=== PATIENT | male | born 1935 | race Hispanic/Latino ===

== ENCOUNTER 2017-06-12 10:14 | Emergency (ER) | payer MEDICARE, OTHER ==
[2017-06-12 10:52] LABS: #Lymphocytes 1.7 thou/uL (1.20-3.40); #Monocytes 0.5 thou/uL (0.11-0.59); #Neutrophils 7.2 thou/uL (1.40-6.50); %Basophils 0.4 % (0.0-1.0); %Eosinophils 0.1 % (0.0-10.0); %Lymphocytes 18.3 % (21.0-51.0); %Monocytes 5.4 % (0.0-10.0); Hematocrit 41.9 % (42.0-52.0); Red Blood Cell (RBC) Count 4.25 mill/uL (4.70-6.10); White Blood Cell (WBC) Count 9.4 thou/uL (4.8-10.8)
[2017-06-12 11:17] LABS: ALT (SGPT) 21 U/L (8-55); AST (SGOT) 23 U/L (5-34); Alkaline Phosphatase 43 U/L (40-150); Anion Gap 13 mmol/L (10-20); BUN (Urea Nitrogen) 13 mg/dL (8.4-25.7); Bilirubin, Total 0.5 mg/dL (0.2-1.2); Calc. Creatinine Clearance 0 mL/min (70-130); Calcium 9.4 mg/dL (7.8-10.44); Carbon Dioxide 20 mmol/L (23-31); Chloride 103 mmol/L (98-107); Estimated GFR-MDRD 58; Protein, Total 6.8 g/dL (5.8-8.1)
[2017-06-12 12:15] LABS: Bilirubin Negative (Negative); Blood, Urine Negative (Negative); Glucose, Urine (Dipstick) >=1000 mg/dL (Negative); Ketone, Urine Trace mg/dL (Negative); Nitrite Negative (Negative); Protein, Urine (Dipstick) 30 mg/dL (Neg-Trace)
[2017-06-12 12:24] LABS: Bacteria/HPF None Seen HPF (None Seen); Hyaline Casts/LPF 0-3 HYALINE CAST LPF (0-3 Hyaline); Squamous Epithelial None Seen HPF (0-3); WBC/HPF 0-3 HPF (0-3)
--- NOTE | 2017-06-12 13:16 | RAD ---
ABDOMINAL SURVEY WITH UPRIGHT CHEST AND TWO VIEW ABDOMEN: History: Chest pain. FINDINGS: Lungs are clear. No infiltrate or vascular congestion. Post op sternotomy change. Heart size within n ormal range. Two view abdomen shows scattered stool and gas throughout the colon. There is scattered small bowel g as which appears nonspecific. No evidence of small bowel dilatation or obstruction. No free intraperi toneal air identified. IMPRESSION: Unremarkable bowel gas pattern. Nonspecific small bowel gas is noted. POS: [facility]
== END 2017-06-12 15:14 | disposition home or self-care (01) ==
LOC: ERS 10:14
DX: R10.9 Unspecified abdominal pain (principal); Z87.442 Personal history of urinary calculi; I25.10 Atherosclerotic heart disease of native coronary artery without angina pectoris; E11.9 Type 2 diabetes mellitus without complications; E78.5 Hyperlipidemia, unspecified; I10 Essential (primary) hypertension; Z79.82 Long term (current) use of aspirin; Z79.84 Long term (current) use of oral hypoglycemic drugs; Z79.899 Other long term (current) drug therapy
CPT/HCPCS: 36415; 74022; 80053; 81003; 81015; 82553; 84484; 85025

== ENCOUNTER 2019-02-25 13:01 | Emergency (ER) | payer MEDICARE, OTHER ==
[2019-02-25] MEDS ORDERED: Ondansetron PF 4 MG/2 ML Vial ONE (13:42)
[2019-02-25 13:55] LABS: #Eosinphils 0.2 thou/uL (0.0-0.7); #Lymphocytes 2.6 thou/uL (1.20-3.40); #Monocytes 0.4 thou/uL (0.11-0.59); #Neutrophils 4.4 thou/uL (1.40-6.50); %Basophils 0.5 % (0.0-1.0); %Eosinophils 2.7 % (0.0-10.0); %Lymphocytes 33.4 % (21.0-51.0); %Monocytes 5.7 % (0.0-10.0); %Neutrophils 57.7 % (42.0-75.0); Hemoglobin 12.6 g/dL (14.0-18.0); Mean Corpuscular HGB CONC 33.2 g/dL (32.0-36.0); Mean Corpuscular Volume 96.3 fL (78.0-98.0); Mean Platelet Volume 8.6 fL (7.4-10.4); Platelet Count 174 thou/uL (130-400); RBC Distribution Width 13.6 % (11.5-14.5); Red Blood Cell (RBC) Count 3.93 mill/uL (4.70-6.10); White Blood Cell (WBC) Count 7.7 thou/uL (4.8-10.8)
--- NOTE | 2019-02-25 14:05 | CT ---
CT BRAIN WITHOUT CONTRAST: Date: 02/25/19 INDICATION: History of dizziness. COMPARISON: None. FINDINGS: There is an air fluid level within the left maxillary sinus. There is an air fluid level within the r ight sphenoid sinus. There is mild mucosal thickening of the ethmoid air cells. Mastoid air cells are clear. No acute infarct, hemorrhage, or hydrocephalus is evident. No midline shift is noted. IMPRESSION: 1. Left maxillary and right sphenoid sinusitis. 2. No acute intracranial abnormality. POS: [facility]
[2019-02-25 14:17] LABS: ALT (SGPT) 13 U/L (8-55); AST (SGOT) 13 U/L (5-34); Albumin 4.1 g/dL (3.4-4.8); Alkaline Phosphatase 49 U/L (40-150); Anion Gap 13 mmol/L (10-20); BUN (Urea Nitrogen) 22 mg/dL (8.4-25.7); Bilirubin, Total 0.4 mg/dL (0.2-1.2); CK (CPK) 69 U/L (30-200); Calc. Creatinine Clearance 0 mL/min (70-130); Calcium 9.4 mg/dL (7.8-10.44); Carbon Dioxide 22 mmol/L (23-31); Chloride 106 mmol/L (98-107); Estimated GFR-MDRD 52; Globulin 2.5 g/dL (2.4-3.5); Glucose 155 mg/dL (83-110); Potassium 5.2 mmol/L (3.5-5.1); Protein, Total 6.6 g/dL (5.8-8.1); Sodium 136 mmol/L (136-145)
[2019-02-25 17:28] LABS: Anion Gap 14 mmol/L (10-20); BUN (Urea Nitrogen) 20 mg/dL (8.4-25.7); Calc. Creatinine Clearance 0 mL/min (70-130); Calcium 9.4 mg/dL (7.8-10.44); Carbon Dioxide 18 mmol/L (23-31); Chloride 108 mmol/L (98-107); Estimated GFR-MDRD 61; Glucose 118 mg/dL (83-110); Potassium 4.8 mmol/L (3.5-5.1); Sodium 135 mmol/L (136-145)
[2019-02-25 17:56] LABS: Bilirubin Negative (Negative); Blood, Urine Negative (Negative); Clarity Clear (Clear); Glucose, Urine (Dipstick) 200 mg/dL (Negative); Leukocyte Negative Leu/uL (Negative); Nitrite Negative (Negative); Protein, Urine (Dipstick) Negative (Neg-Trace); Urobilinogen Normal mg/dL (Less than 2)
--- NOTE | 2019-02-28 22:33 | EKG ---
Test Reason : SYNCOPE Blood Pressure : / mmHG Vent. Rate : 064 BPM Atrial Rate : 064 BPM P-R Int : 170 ms QRS Dur : 126 ms QT Int : 444 ms P-R-T Axes : 006 -52 000 degrees QTc Int : 458 ms Normal sinus rhythm Right bundle branch block Left anterior fascicular block Bifascicular block Abnormal ECG Confirmed by SHAHEEN EDWARDS, MARTA Garcia ([id number]), dictionary editor MERCEDES LONGO ([id number]) on 02/28/2019 10:32:40 PM Referred By: MD JAMISON Confirmed By:MARTA JAMISON MD
== END 2019-02-25 19:14 | disposition home or self-care (01) ==
LOC: ERS 13:01
DX: T67.5XXA Heat exhaustion, unspecified, initial encounter (principal); E86.0 Dehydration; I25.10 Atherosclerotic heart disease of native coronary artery without angina pectoris; E11.9 Type 2 diabetes mellitus without complications; I10 Essential (primary) hypertension; K21.9 Gastro-esophageal reflux disease without esophagitis; E78.5 Hyperlipidemia, unspecified; E78.00 Pure hypercholesterolemia, unspecified; F32.9 Major depressive disorder, single episode, unspecified; Z79.899 Other long term (current) drug therapy; Z79.84 Long term (current) use of oral hypoglycemic drugs; Z79.82 Long term (current) use of aspirin; X30.XXXA Exposure to excessive natural heat, initial encounter
CPT/HCPCS: 36415; 70450; 80053; 81003; 82550; 84484; 85025; 93005; 96361; 96374; J2405

== ENCOUNTER 2019-04-18 16:55 | Emergency (ER) | payer MEDICARE, OTHER ==
[2019-04-18 18:01] LABS: Bilirubin Negative (Negative); Blood, Urine 2+ (Negative); Clarity Turbid (Clear); Glucose, Urine (Dipstick) Normal (Negative); Leukocyte 500 Leu/uL (Negative); Nitrite Negative (Negative); Protein, Urine (Dipstick) 100 mg/dL (Neg-Trace); RBC/HPF Greater than 50 HPF (0-3); Squamous Epithelial None Seen HPF (0-3); Urobilinogen Normal mg/dL (Less than 2)
[2019-04-18 18:07] LABS: Bacteria/HPF 1+ HPF (None Seen)
--- NOTE | 2019-04-18 18:57 | CT ---
Exam: Abdomen CT without contrast Pelvic CT without contrast HISTORY: Dysuria. Hematuria. COMPARISON: None FINDINGS: Abdomen CT: Lung bases:Dependent atelectatic changes. 2 separate 4 mm nodules in the right lower lobe. Heart size: Normal heart size. No significant pericardial effusion. Aorta: Atherosclerosis. No aneurysmal dilatation. Solid organs: Limited evaluation due to the lack of IV contrast. Grossly no solid organ abnormality. Lymph nodes: No gastrohepatic, retrocrural or periportal lymphadenopathy Gallbladder: Surgically absent Mesentery: No mass, lymphadenopathy, free air or free fluid Kidneys: Bilaterally, no hydronephrosis, nephrolithiasis or perinephric fat stranding. Bilateral uret ers have a normal caliber. No hydroureter, periureteral fat stranding or ureterolithiasis. Alimentary canal: Limited evaluation due to lack of oral contrast. No evidence of small bowel obstruc tion. Unremarkable ileocecal junction. Normal caliber appendix. Scattered fecal material in a nondistended, nondilated colon. Diverticulosis, without evidence of diverticulitis. Stable calcificat ion along the distal descending colon likely representing a calcified diverticulum or change from remote epiploic appendicitis. Retroperitoneum: There are enlarged periaortic and aortocaval lymph nodes. [place] enlarged ly mph node measures 1.[address] PELVIS: No mass, adenopathy, free air or free fluid. Urinary bladder: Urinary bladder mucosal thickening. Osseous structures: No lytic or blastic lesions IMPRESSION: 1. No evidence of obstructive uropathy. 2. Urinary bladder mucosal prominence. Findings may be due to prostatic hypertrophy. Cystitis cannot be excluded. Correlate clinically. Cystoscopy if clinically warranted. 3. Enlarged retroperitoneal lymph nodes. Clinical correlation for infectious, inflammatory or neoplas tic process is recommended. 4. Right lower lobe nodules. Code lung nodule Transcribed Date/Time: 04/18/2019 7:31 PM
[2019-04-18] MEDS ORDERED: Ciprofloxacin 500 MG TAB ONE (19:12)
== END 2019-04-18 19:30 | disposition home or self-care (01) ==
LOC: ERS 16:55
DX: N30.91 Cystitis, unspecified with hematuria (principal); I25.10 Atherosclerotic heart disease of native coronary artery without angina pectoris; E11.9 Type 2 diabetes mellitus without complications; I10 Essential (primary) hypertension; K21.9 Gastro-esophageal reflux disease without esophagitis; E78.00 Pure hypercholesterolemia, unspecified; F32.9 Major depressive disorder, single episode, unspecified; Z79.899 Other long term (current) drug therapy; Z79.82 Long term (current) use of aspirin; Z79.84 Long term (current) use of oral hypoglycemic drugs
CPT/HCPCS: 51798; 74176; 81003; 81015

== ENCOUNTER 2019-06-15 10:45 | Observation (INO) | payer MEDICARE, MEDICAID ==
[2019-06-15] MEDS ORDERED: Aspirin Chewable 81 MG TAB ONE (10:56)
[2019-06-15 11:22] LABS: #Basophils 0.1 thou/uL (0.0-0.2); #Eosinphils 0.2 thou/uL (0.0-0.7); #Monocytes 0.3 thou/uL (0.11-0.59); #Neutrophils 2.5 thou/uL (1.40-6.50); %Eosinophils 3.4 % (0.0-10.0); %Lymphocytes 49.5 % (21.0-51.0); %Monocytes 5.1 % (0.0-10.0); %Neutrophils 40.9 % (42.0-75.0); Hemoglobin 13.3 g/dL (14.0-18.0); Mean Corpuscular HGB CONC 33.7 g/dL (32.0-36.0); Mean Corpuscular Hemoglobin 31.6 pg (27.0-31.0); Mean Corpuscular Volume 93.8 fL (78.0-98.0); Mean Platelet Volume 8.9 fL (7.4-10.4); Platelet Count 191 thou/uL (130-400); White Blood Cell (WBC) Count 6.1 thou/uL (4.8-10.8)
[2019-06-15 11:29] LABS: PTT 30.4 SEC (22.9-36.1); Prothrombin Time 12.8 SEC (12.0-14.7)
--- NOTE | 2019-06-15 11:36 | RAD ---
Exam: Chest one view HISTORY:Chest pain Comparison: 5-70 FINDINGS: Cardiac silhouette: Normal Aorta: Atherosclerosis of the aortic knob Stable sternotomy wires Pulmonary vessels: Normal Costophrenic angles: Clear LUNGS: No masses or consolidation. Pneumothorax: None Osseous abnormalities: None IMPRESSION: 1. No acute cardiopulmonary process. 2. Atherosclerosis.
[2019-06-15 11:37] LABS: ALT (SGPT) 9 U/L (8-55); AST (SGOT) 14 U/L (5-34); Albumin 4.2 g/dL (3.4-4.8); Alkaline Phosphatase 61 U/L (40-110); Anion Gap 14 mmol/L (10-20); BUN (Urea Nitrogen) 14 mg/dL (8.4-25.7); Bilirubin, Total 0.3 mg/dL (0.2-1.2); Calc. Creatinine Clearance 0 mL/min (70-130); Calcium 9.5 mg/dL (7.8-10.44); Carbon Dioxide 23 mmol/L (23-31); Chloride 105 mmol/L (98-107); Estimated GFR-MDRD 62; Glucose 204 mg/dL (83-110); Potassium 4.6 mmol/L (3.5-5.1); Protein, Total 7.2 g/dL (5.8-8.1); Sodium 137 mmol/L (136-145)
--- NOTE | 2019-06-15 12:24 | PDOC.FPRHP ---
- History of Present Illness Chief Complaint: Chest Pain History of Present Illness: Pt is an 84 yo M with history of UTI being treated, OA, CHF, DMII, BPH, GERD, CAD, HLD, Hypothyroid, and HTN who comes in due to R. arm tingling that occurred 3 days ago and chest pain that started this morning. Pt reports having small amount of chest pain overnight around 1:00 am. Reports pain as substernal and more on the left side of the chest. Reports as mild burn. Pt reports having acid reflux. Was recently given medicine by PCP for this. Pt reports medication have not helped. Deneis any n/v/d/c. Pt reports pain lasted about 1 hour. Pt reports taking two tylenol then because he had headache as well and pain went away. Denies any SOB. The pain in the right arm and tingling has been going on 3 days prior to the chest pain. ED Course: In the ED, he was given ASA 324. Troponin was < 0.010, EKG was unchanged from previous admission. His coag panel was normal. CBC showe slightly decreased Hgb of 13.3 and CMP showed only glucose elevation. - Allergies/Adverse Reactions Allergies Allergy/AdvReac Type Severity Reaction Status Date / Time No Known Allergies Allergy Verified 02/19/16 06:40 - Home Medications Medication Instructions Recorded Confirmed Type Aspirin [Ecotrin Low Strength] 81 mg PO DAILY 02/19/16 06/15/19 History Carvedilol [Coreg] 12.5 mg PO BID 02/19/16 06/15/19 History Levothyroxine Sodium 50 mcg PO DAILY 02/19/16 06/15/19 History Lisinopril 10 mg PO DAILY 02/19/16 06/15/19 History Simvastatin 40 mg PO HS 02/19/16 06/15/19 History Tamsulosin HCl [Flomax] 0.4 mg PO DAILY 02/19/16 06/15/19 History metFORMIN HCl 1,000 mg PO BID 02/19/16 06/15/19 History glipiZIDE 5 mg PO BID 06/15/19 06/15/19 History Comments: The Medications above are not his updated list. His updated medications are listed below. Glipizide 5 mg q12 hrs Ranitidine 150mg daily ASA 81 mg daily Tamsulosin .4 mg daily Lisinopril 10 mg Carvedilol 12.5 mg 1 tab am, 2 tabs pm Levothyroxine 50 mcg Metformin 1000mg BID Simvastatin 40 mg - History PMHx: DMII, Neuropathy, HTN, Cataract, Osteoarthritis, GERD, BPH, HLD, Hypothyroidism. PSHx: CABG, Cholecystectomy FHx: Has some positive fam history of heart issues. Social: Denies any smoking, alcohol use or illicit drug use Code: Full 2018 echo reviewed from clinic records shows EF 50-55%. Moderate LVH. Grade 1 diastolic dysfunction. - Review of Systems General: denies: fever/chills, weight/appetite/sleep changes, night sweats, fatigue Eyes: denies: eye pain, vision changes ENT: denies: nasal congestion, rhinorrhea Respiratory: denies: cough, congestion, shortness of breath, exercise intolerance Cardiovascular: reports: chest pain. denies: palpitation, edema, paroxysmal nocturnal dyspnea, orthopnea Gastrointestinal: denies: nausea, vomiting, diarrhea, constipation, abdominal pain, GI bleeding Genitourinary: reports: dysuria (reports burning with urination.), polyuria. denies: incontinence, discharge Skin: denies: rashes, lesions Musculoskeletal: denies: pain, tenderness, stiffness, swelling, arthritis/ arthralgias Neurological: denies: numbness, seizure, weakness Psychological: denies: anxiety, depression - Vital signs BP: [140/68] HR: [68] RR: [18] Tmax: [] Pox: [97]% on [RA] Wt: [] - Physical Exam Constitutional: NAD, awake, alert and oriented HEENT: normocephalic and atraumatic, PERRLA, EOMI, normal nasal mucosa, MMM, oropharynx clear -HEENT: poor dentition Neck: supple, FROM, trachea midline Chest: no-tender to palpation -Chest: Scar from CABG Heart: RRR, normal S1/S2 Lungs: CTAB, no respiratory distress, good air movement, no rales/rhonchi, no wheezing, no retractions Abdomen: soft, non-tender, bowel sounds present Musculoskeletal: normal structure, normal tone Neurological: no focal deficit, normal sensation Skin: no rash/lesions Heme/Lymphatic: no unusual bruising or bleeding Psychiatric: normal mood and affect FMR H&P: Results - Labs Result Diagrams: 06/15/19 11:05 06/15/19 11:05 Lab results: WBC 6.1 thou/uL (4.8-10.8) 06/15/19 11:05 Hgb 13.3 g/dL (14.0-18.0) L 06/15/19 11:05 Hct 39.4 % (42.0-52.0) L 06/15/19 11:05 MCV 93.8 fL (78.0-98.0) 06/15/19 11:05 Plt Count 191 thou/uL (130-400) 06/15/19 11:05 Neutrophils % 40.9 % (42.0-75.0) L 06/15/19 11:05 Sodium 137 mmol/L (136-145) 06/15/19 11:05 Potassium 4.6 mmol/L (3.5-5.1) 06/15/19 11:05 Chloride 105 mmol/L (98-107) 06/15/19 11:05 Carbon Dioxide 23 mmol/L (23-31) 06/15/19 11:05 BUN 14 mg/dL (8.4-25.7) 06/15/19 11:05 Creatinine 1.13 mg/dL (0.7-1.3) 06/15/19 11:05 Glucose 204 mg/dL (83-110) H 06/15/19 11:05 Calcium 9.5 mg/dL (7.8-10.44) 06/15/19 11:05 Total Bilirubin 0.3 mg/dL (0.2-1.2) 06/15/19 11:05 AST 14 U/L (5-34) 06/15/19 11:05 ALT 9 U/L (8-55) 06/15/19 11:05 Alkaline Phosphatase 61 U/L (40-110) 06/15/19 11:05 Serum Total Protein 7.2 g/dL (5.8-8.1) 06/15/19 11:05 Albumin 4.2 g/dL (3.4-4.8) 06/15/19 11:05 - EKG Interpretation EKG: Unchanged from previous admission. - Radiology Interpretation Chest x-ray Status: report reviewed by nd FMR H&P: A/P - Problem List (1) Chest pain Current Visit: Yes Status: Acute Code(s): R07.9 - CHEST PAIN, UNSPECIFIED (2) CAD (coronary artery disease) Current Visit: No Status: Chronic Code(s): I25.10 - ATHSCL HEART DISEASE OF [place] CORONARY ARTERY W/O ANG PCTRS (3) Diabetes type 2, controlled Current Visit: No Status: Chronic Code(s): E11.9 - TYPE 2 DIABETES MELLITUS WITHOUT COMPLICATIONS (4) GERD (gastroesophageal reflux disease) Current Visit: No Status: Chronic Code(s): K21.9 - GASTRO-ESOPHAGEAL REFLUX DISEASE WITHOUT ESOPHAGITIS (5) HTN (hypertension) Current Visit: No Status: Chronic Code(s): I10 - ESSENTIAL (PRIMARY) HYPERTENSION (6) Hypothyroidism Current Visit: No Status: Chronic Code(s): E03.9 - HYPOTHYROIDISM, UNSPECIFIED (7) Normocytic anemia Current Visit: No Status: Chronic Code(s): D64.9 - ANEMIA, UNSPECIFIED - Plan Pt is an 84 yo M with history of OA, CHF, DMII, BPH, GERD, CAD, HLD, Hypothyroid , and HTN who comes in due to R. arm tingling that occurred 3 days ago and chest pain that started this morning. 1. Chest Pain, Atypical Chest Pain that was burning on L side of chest at rest and resolved and relieved with Tylenol * Trop: < 0.01 * Will Trend * EKG Unchanged since previous admission * CXR: Atherosclerosis with NAF * Heart Score: 6 * Hx of CABG 7 years ago, 3 vessel * ASA & Atorvastatin started * Mag, Phos,TSH, Lipid panel ordered * ECHO: (2018) EF 50-55%. Moderate LVH. Grade 1 diastolic dysfunction. * Ordered ECHO & Stress 2. CHF No edema on exam or SOB * ECHO: (2018) EF 50-55%. Moderate LVH. Grade 1 diastolic dysfunction. * Will repeat ECHO * Will Lisinopril & Carvedilol 3. DMII BG slightly elevated * 08/19/28 A1c: 7.8% * Will restart Metformin & Glipizide 4. HTN BP: 178/92 * Will Lisinopril & Carvedilol * Will monitor & adjust as needed 5. HLD * Atorvastatin 20 mg qHS * Ordered Lipid panel 6. BPH * Restart Tamsulosin 7. GERD * Will restart Ranitidine 8. Hypothyroid * Will restart Levo 9. Normocytic Anemia Hgb: 13.3 * Up from clinic Hgb of 12. Code Status: Full Diet: CC Lines: Peripheral GI PPx: Ranitidine DVT PPx: Lovenox Dispo: Tele Obs, LOS < 48H. Likely d/c tomorrow after testing. FMR H&P: Upper Level - Pertinent history I was present with Dr. Mandy Quinn during the HPI. I scribed the above document. I made edits as needed. See above for details. - Pertinent findings Pt does not appear fluid overloaded at this time. Cardio: RRR, no murmurs or gallops. Neuro: No numbness noted in LE and UE. Good ROm. - Plan Date/Time: 06/15/19 1223 I, Juni Gallo, PGY-3 have evaluated this patient and agree with findings/ plan as outlined by dietetic intern resident. Pertinent changes/additions are listed here. See above for detailed plan. I have made edits above. At this time we will admit patient for Atypical chest pain. Will trend trops. Will repeat ECHO as last ECHO performed in [facility] charts was 2018. Will plan on stress test in the AM. Will consult cardiology pending any changes. Pt also recently started on GERD medication. Will titrate ranitidine to 2x daily and see if helps. Addendum - Attending - Attending Attestation Date/Time: 06/15/19 5735 I personally evaluated the patient and discussed the management with Dr. Mandy Quinn I agree with the History, Examination, Assessment and Plan documented above with any addition or exceptions noted below - 84 yo M with history of UTI being treated, OA, CHF, DMII, BPH, GERD, CAD, HLD, Hypothyroid, and HTN who comes in due to R. arm tingling that occurred 3 days ago and chest pain that started this morning. Denies any SOB, N/V or diaphoresis. Exam repeated by me and agree with resident's findings. EKG unchanged from prior EKG, Trop<0.010. A/P: 1) Atypical chest pain- place in obs. Check serial cardiac enzymes. Plan for stress in AM 2) HTN- continue home meds, 3) Hyopothyroidism- will check TSH; continue home meds and adjust as needed
[2019-06-15] MEDS ORDERED: HumaLOG 300 UNITS/3 ML VIAL SC PRN ×2 (13:13)
[2019-06-15] MEDS ORDERED: Dextrose 50% Abboject 50 ML SYRINGE SLOW IVP PRN (13:13)
[2019-06-15] MEDS ORDERED: Dextrose 5% in Water 1,000 ML IV PRN (13:13)
[2019-06-15] MEDS ORDERED: Ondansetron PF 4 MG/2 ML Vial IVP PRN (14:40)
[2019-06-15] MEDS ORDERED: hydrALAZINE 20 MG/ML VIAL SLOW IVP PRN (14:40)
[2019-06-15] MEDS ORDERED: Acetaminophen 650 MG Suppository PR PRN (14:40)
[2019-06-15] MEDS ORDERED: Calcium Carbonate 500 MG ChewTAB PO PRN (14:40)
[2019-06-15] MEDS ORDERED: Acetaminophen 325 MG TAB PO PRN (14:40)
[2019-06-15] MEDS ORDERED: Nitroglycerin 0.4 MG TAB (25 Tab Bottle) PO PRN (14:40)
[2019-06-15] MEDS ORDERED: Ondansetron ODT 4 MG TAB PO PRN (14:40)
[2019-06-15 14:57] VITALS: BMI 26.2
[2019-06-15 15:15] LABS: Magnesium 1.5 mg/dL (1.6-2.6)
[2019-06-15] MEDS ORDERED: Enoxaparin Sodium 40 MG/0.4 ML SYRINGE SC SCH (18:15)
[2019-06-15] MEDS ORDERED: Atorvastatin Calcium 20 MG TAB PO SCH (21:00)
[2019-06-16 05:16] LABS: Cardiac Risk 3.2 (Less than 4.5)
[2019-06-16] MEDS ORDERED: Levothyroxine Sodium 50 MCG TAB PO SCH (06:00)
--- NOTE | 2019-06-16 06:22 | PDOC.FM ---
- Subjective Subjective: He says he is not in any pain. The bed he says is very uncomfortable and he was only able to get a little sleep. He says he is eating well. - Objective MAR Reviewed: Yes Vital Signs & Weight: Vital Signs (12 hours) Temp Pulse Resp BP Pulse Ox 06/16/19 04:00 98.4 F 74 20 148/70 H 94 L 06/15/19 23:40 98.4 F 85 13 132/63 94 L 06/15/19 19:35 98.5 F 92 14 153/72 H 96 Weight Weight 76.067 kg I&O: 06/14/19 06/15/19 06/16/19 06:59 06:59 06:59 Intake Total 360 Output Total 200 Balance 160 Result Diagrams: 06/16/19 04:34 06/15/19 11:05 Phys Exam - Physical Examination Constitutional: NAD HEENT: PERRLA Neck: no nodes, no JVD Respiratory: clear to auscultation bilateral Cardiovascular: RRR, no significant murmur Gastrointestinal: soft, non-tender, positive bowel sounds Musculoskeletal: no edema, pulses present Neurological: moves all 4 limbs Psychiatric: normal affect Skin: no rash Dx/Plan (1) Chest pain Code(s): R07.9 - CHEST PAIN, UNSPECIFIED Status: Acute (2) CAD (coronary artery disease) Code(s): I25.10 - ATHSCL HEART DISEASE OF [place] CORONARY ARTERY W/O ANG PCTRS Status: Chronic (3) Diabetes type 2, controlled Code(s): E11.9 - TYPE 2 DIABETES MELLITUS WITHOUT COMPLICATIONS Status: Chronic (4) GERD (gastroesophageal reflux disease) Code(s): K21.9 - GASTRO-ESOPHAGEAL REFLUX DISEASE WITHOUT ESOPHAGITIS Status: Chronic (5) HTN (hypertension) Code(s): I10 - ESSENTIAL (PRIMARY) HYPERTENSION Status: Chronic (6) Hypothyroidism Code(s): E03.9 - HYPOTHYROIDISM, UNSPECIFIED Status: Chronic (7) Normocytic anemia Code(s): D64.9 - ANEMIA, UNSPECIFIED Status: Chronic - Plan Plan: Pt is an 84 yo M with history of OA, CHF, DMII, BPH, GERD, CAD, HLD, Hypothyroid , and HTN who comes in due to R. arm tingling that occurred 3 days ago and chest pain that started this morning. 1. Chest Pain, Atypical Chest Pain that was burning on L side of chest at rest and resolved and relieved with Tylenol * Trop: <0.01 > <0.01 > 0.018 * Negative x3 * EKG Unchanged since previous admission * CXR: Atherosclerosis with NAF * Heart Score: 6 * Hx of CABG 7 years ago, 3 vessel * ASA & Atorvastatin started * Mag, Phos,TSH, Lipid panel ordered * ECHO: (2018) EF 50-55%. Moderate LVH. Grade 1 diastolic dysfunction. * ECHO: EF 50-55% with Mild AR & TR * Stress this morning 2. CHF No edema on exam or SOB * ECHO: (2018) EF 50-55%. Moderate LVH. Grade 1 diastolic dysfunction. * ECHO: EF 50-55% with Mild AR & TR * Will Lisinopril & Carvedilol 3. DMII BG slightly elevated * 08/19/28 A1c: 7.8% * Will restart Metformin & Glipizide 4. HTN BP: 148/78 * Will Lisinopril & Carvedilol * Will monitor & adjust as needed 5. HLD * Atorvastatin 20 mg qHS * Ordered Lipid panel 6. BPH * Restart Tamsulosin 7. GERD * Will restart Ranitidine 8. Hypothyroid * Will restart Levo 9. Normocytic Anemia Hgb: 13.3 * Up from clinic Hgb of 12. Code Status: Full Diet: CC Lines: Peripheral GI PPx: Ranitidine DVT PPx: Lovenox Dispo: Tele Obs, LOS < 48H. Likely d/c today after stress. Addendum - Attending - Attending Attestation Date/Time: 06/16/19 3038 I personally evaluated the patient and discussed the management with Dr. Quinn. I agree with the History, Examination, Assessment and Plan documented above with any addition or exceptions noted below. The patient is free of chest pain. He is getting a stress test. If negative, likely d/c home.
[2019-06-16 06:37] LABS: Elliptocytes SLIGHT = 2-5 cells (100X) (0-1/hpf); Eosinophils 4 % (0-10); Hemoglobin 12.8 g/dL (14.0-18.0); Lymphocytes 57 % (21-51); MDiff Complete? YES; Mean Corpuscular HGB CONC 33.7 g/dL (32.0-36.0); Mean Corpuscular Hemoglobin 31.7 pg (27.0-31.0); Mean Corpuscular Volume 94.1 fL (78.0-98.0); Mean Platelet Volume 8.6 fL (7.4-10.4); Monocytes 5 % (0-10); Neutrophil 33 % (42-75); Platelet Count 179 thou/uL (130-400); RBC Distribution Width 14.1 % (11.5-14.5); Red Blood Cell (RBC) Count 4.03 mill/uL (4.70-6.10); Tear Drops SLIGHT = 2-5 cells (100X) (0-1/hpf); White Blood Cell (WBC) Count 6.9 thou/uL (4.8-10.8)
[2019-06-16 06:45] LABS: Troponin I 0.018 ng/mL (< 0.028)
[2019-06-16] MEDS: metFORMIN 500 MG TAB PO SCH ×2 (08:04→12:11)
[2019-06-16] MEDS ORDERED: Tamsulosin HCl 0.4 MG CAP PO SCH (09:00)
[2019-06-16] MEDS ORDERED: Aspirin 81 mg Enteric Coated Tablet PO SCH (09:00)
[2019-06-16] MEDS ORDERED: Enoxaparin Sodium 40 MG/0.4 ML SYRINGE SC SCH (09:00)
[2019-06-16] MEDS ORDERED: Lisinopril 10 MG TAB PO SCH (09:00)
--- NOTE | 2019-06-16 12:08 | NM ---
Radionucleotide stress and rest myocardial perfusion scan with CT attenuation correction and SPECT im aging Left ventricular wall motion evaluation and ejection fraction HISTORY: Chest pain. FINDINGS: Adenosine protocol. Heterogeneous uptake of radiotracer throughout the left ventricular kaye cardium. No focal perfusion defect or reversibility evident. QGS analysis of gated SPECT images shows no focal wall motion abnormalities. Ejection fraction calcul ated at 65%. IMPRESSION: Normal myocardial perfusion scan. Normal LVEF.
[2019-06-16 12:54] VITALS: BP 177/79; TEMP 97.7
[2019-06-16] MEDS ORDERED: ADENOSINE 60 MG/20 ML VIAL ONE (14:23)
--- NOTE | 2019-06-22 11:38 | DIS ---
DATE OF ADMISSION: 06/15/2019 DATE OF DISCHARGE: 06/16/2019 RESIDENT: Aroldo Quinn MD ADMITTING ATTENDING: Aixa Flowers MD DISCHARGE ATTENDING: Ifrah Esposito MD CONSULTS: None. PROCEDURES: Chest x-ray on 06/15 shows no acute cardiopulmonary process. Atherosclerosis. Echo on 06/15 shows EF of 50% to 55%. Left ventricle size is normal. Normal right ventricle. Normal left atrium and right atrium. Stress on 06/16/2019 shows EF of 65% with normal myocardial perfusion scan. PRIMARY DIAGNOSES: 1. Atypical chest pain. 2. Congestive heart failure. 3. Diabetes, type 2. SECONDARY DIAGNOSES: 1. Hypertension. 2. Hyperlipidemia. 3. Benign prostatic hypertrophy. 4. Gastroesophageal reflux disease. 5. Hypothyroidism. 6. Normocytic anemia. DISCHARGE MEDICATIONS: 1. Atorvastatin 20 mg at bedtime. 2. Protonix 40 mg p.o. daily. DISCONTINUED MEDICATIONS: None. HISTORY OF PRESENT ILLNESS: This patient is an 84-year-old male with a history of UTI, being treated; OA; CHF; diabetes, type 2; BPH; GERD; coronary artery disease; hyperlipidemia; hypothyroidism; and hypertension, who comes in due to right arm tingling that occurred 3 days ago and chest pain that started this morning. The patient reports having a small amount of chest pain overnight around 1 a.m. He reports pain is substernal and more on the left side of the chest. Reports with a mild burn. The patient reports having acid reflux and was recently given medicine by PCP, but this patient reports medication has not helped. Denies any nausea, vomiting, diarrhea, or constipation. The patient reports pain lasted about 1 hour, the patient reports taking two Tylenol then, because he had headache and pain that went away. He denies any shortness of breath. The pain in the right arm and tingling has been going on for 3 days prior to the chest pain. In the ED, he was given aspirin 324. Troponin was negative x1. EKG was unchanged from previous admission. His coag panel was normal. CBC shows slight decreased hemoglobin of 13.3, and CMP showed only glucose elevation. 1. Atypical chest pain. Chest pain that was burning on left side of the chest and resolved and relieved with Tylenol. a. Tropes negative x3. b. EKG unchanged since previous admission. c. Chest x-ray as noted above. d. HEART score is 6. e. History of CABG, 7 years ago, 3-vessel. f. Aspirin and atorvastatin started. g. Magnesium, phosphorus, TSH, and lipid panel within normal limits. h. Echo as noted above. i. Stress as noted above. 2. CHF. a. No edema on exam or shortness of breath. b. Echo in 2018 showed EF of 50% to 55%, with moderate left ventricular hypertrophy and grade 1 diastolic dysfunction. c. Echo during this hospital stay as noted above. d. We will continue lisinopril and carvedilol. 3. Diabetes, type 2. a. Blood glucose slightly elevated. b. Last A1c was 08/19/2018, was 7.8%. c. We will restart metformin and glipizide. 4. Hypertension. a. Blood pressure 148/78. b. We will continue lisinopril and carvedilol. We will monitor and adjust as needed. 5. Hyperlipidemia. a. Atorvastatin 20 mg at bedtime. b. Ordered lipid panel was found to be within normal limits. 6. BPH. a. Restart tamsulosin. 7. GERD. a. We will restart ranitidine. 8. Hypothyroidism. a. We will restart levo. 9. Normocytic anemia. a. Hemoglobin of 13.3. b. Recommend outpatient management. DISPOSITION: Stable. DISCHARGE INSTRUCTIONS: 1. Location: Home. 2. Diet: Consistent carb, heart healthy, low-sodium. 3. Activity: As tolerated. 4. Followup: Follow up with Dr. Manuel Barnhart within 14 days of discharge. Job ID: [id number] [facility]
== END 2019-06-16 16:52 | disposition home or self-care (01) ==
LOC: ERS 10:45 → 2SW 14:04
PROVIDERS: ADMIT Family Medicine; ATTEND Family Medicine
DX: R07.89 Other chest pain (principal); I11.0 Hypertensive heart disease with heart failure; I50.9 Heart failure, unspecified; E03.9 Hypothyroidism, unspecified; E11.9 Type 2 diabetes mellitus without complications; E78.5 Hyperlipidemia, unspecified; I25.10 Atherosclerotic heart disease of native coronary artery without angina pectoris; D64.9 Anemia, unspecified; K21.9 Gastro-esophageal reflux disease without esophagitis; N40.0 Benign prostatic hyperplasia without lower urinary tract symptoms; M19.90 Unspecified osteoarthritis, unspecified site; Z79.82 Long term (current) use of aspirin; Z79.84 Long term (current) use of oral hypoglycemic drugs; Z79.899 Other long term (current) drug therapy; Z95.1 Presence of aortocoronary bypass graft
CPT/HCPCS: 71045; 78452; 80061; 82962 ×2; 83735; 84100; 84484 ×3; 85025; 85610; 85730; 93005; 93017; 93306; 94760; 99285; A9500; G0378 ×3; 36415; 36416; 80053; 84443; J0153

== ENCOUNTER 2019-07-09 09:45 | Outpatient (CLI) | payer MEDICARE, MEDICAID ==
--- NOTE | 2019-07-09 12:18 | CT ---
CT abdomen with and without contrast CT pelvis with and without contrast: (CT urogram) DATE: 07/09/2019 HISTORY: 84-year-old male with microscopic hematuria. COMPARISON: Noncontrast CT of 04/18/2019 FINDINGS: The previously mentioned enlarged retroperitoneal lymph nodes have increased in size. They are bilate ral periaortic nodes. None are calcified. The largest is on the left measuring 2 x 1.5 x 3 cm. Bilateral nephrograms are homogeneous with no solid or cystic lesion. No renal, ureteral, or bladder calculus. No hydronephrosis. Normal, thin cornejo of the urinary bladder. No bladder tumor identified. Sigmoid colonic diverticulosis without diverticulitis. No ascites, pneumoperitoneum, or small bowel dilation. Normal appendix, adrenals, spleen, and liver. Atrophic pancreas. Third stages duodenal diverticulum. Fusiform 2.9 cm dilation of infrarenal abdominal aorta focally. Mildly enlarged prostate gland. IMPRESSION: 1. Interval worsening of retroperitoneal lymphadenopathy. Recommend PET scan for further evaluation. 2. No renal or bladder tumor. No nephrolithiasis. 3. 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
[2019-07-09] MEDS ORDERED: Iopamidol-370 76% 500 ML 1 ML ONE (13:50)
== END 2019-07-09 09:46 | disposition home or self-care (01) ==
LOC: BICCT 09:45
PROVIDERS: ATTEND Urology
DX: R31.29 Other microscopic hematuria (principal); R59.0 Localized enlarged lymph nodes; I71.4 Abdominal aortic aneurysm, without rupture
CPT/HCPCS: 74178; Q9967

== ENCOUNTER 2019-08-05 10:30 | Observation (INO) | payer MEDICARE, OTHER ==
[2019-08-05] MEDS ORDERED: methylPREDNISolone Sod Succ/PF 125 MG/2 ML VIAL ONE (10:49)
[2019-08-05] MEDS ORDERED: Famotidine/PF 20 mg/2ml Vial ONE (10:49)
[2019-08-05] MEDS ORDERED: diphenhydrAMINE 50 MG/ML VIAL ONE (10:49)
[2019-08-05 11:16] LABS: #Basophils 0.1 thou/uL (0.0-0.2); #Eosinphils 0.1 thou/uL (0.0-0.7); #Lymphocytes 2.2 thou/uL (1.20-3.40); #Monocytes 0.3 thou/uL (0.11-0.59); #Neutrophils 3.7 thou/uL (1.40-6.50); %Eosinophils 2.1 % (0.0-10.0); %Lymphocytes 34.6 % (21.0-51.0); %Monocytes 4.1 % (0.0-10.0); %Neutrophils 58.2 % (42.0-75.0); Hemoglobin 14.3 g/dL (14.0-18.0); Mean Corpuscular Hemoglobin 31.2 pg (27.0-31.0); Mean Corpuscular Volume 97.3 fL (78.0-98.0); Mean Platelet Volume 8.7 fL (7.4-10.4); Platelet Count 208 thou/uL (130-400); Red Blood Cell (RBC) Count 4.58 mill/uL (4.70-6.10); White Blood Cell (WBC) Count 6.4 thou/uL (4.8-10.8)
--- NOTE | 2019-08-05 11:29 | RAD ---
PORTABLE CHEST 1 VIEW: Date: 08/05/2019 Time: 1113 hours HISTORY: Chest pain. FINDINGS: Comparison made with exam of 06/15/2019. There are changes of median sternotomy. The heart size is normal. The aorta is tortuous. The lungs ar e well expanded without focal areas of consolidation, pneumothoraces, or pleural effusions. IMPRESSION: No acute process. POS: OFF
[2019-08-05 11:40] LABS: ALT (SGPT) 11 U/L (8-55); AST (SGOT) 19 U/L (5-34); Albumin 4.1 g/dL (3.4-4.8); Alkaline Phosphatase 55 U/L (40-110); Anion Gap 17 mmol/L (10-20); BUN (Urea Nitrogen) 15 mg/dL (8.4-25.7); Bilirubin, Total 0.4 mg/dL (0.2-1.2); Calc. Creatinine Clearance 0 mL/min (70-130); Calcium 9.3 mg/dL (7.8-10.44); Carbon Dioxide 19 mmol/L (23-31); Chloride 105 mmol/L (98-107); Estimated GFR-MDRD 58; Globulin 3.2 g/dL (2.4-3.5); Glucose 233 mg/dL (83-110); Lipase 26 U/L (8-78); Potassium 5.9 mmol/L (3.5-5.1); Protein, Total 7.3 g/dL (5.8-8.1); Sodium 135 mmol/L (136-145)
--- NOTE | 2019-08-05 12:17 | PDOC.FPRHP ---
- History of Present Illness Chief Complaint: CP, SOB History of Present Illness: Mr. Wooten is an 84 year old male with pmh of HTN, HLD, DM, and CAD who presents for left sided chest pain. He was having an MRI done when he had a reaction, his blood pressure dropped. He said he devloped the chest pain before the contrast was administered. It felt like a pressure on the left side of his chest with no radiation. The pain lasted for about 30 minutes until he was given ASA in the ambulance. His pressures of 90/60s reported by EMS. ED Course: In the ED, his labs were BNP: 28.7, CXR: NAF, Trop: Neg x1, Lipase: 26, Na: 135 , HCO3: 19, Glucose: 223, and Cre: 1.19. - Allergies/Adverse Reactions Allergies Allergy/AdvReac Type Severity Reaction Status Date / Time IV Contrast Allergy Uncoded 08/05/19 16:48 - Home Medications Medication Instructions Recorded Confirmed Type Carvedilol [Coreg] 12.5 mg PO BID 02/19/16 08/05/19 History Levothyroxine Sodium 50 mcg PO DAILY 02/19/16 08/05/19 History Lisinopril 10 mg PO DAILY 02/19/16 08/05/19 History Tamsulosin HCl [Flomax] 0.4 mg PO DAILY 02/19/16 08/05/19 History metFORMIN HCl 1,000 mg PO BID 02/19/16 08/05/19 History glipiZIDE 5 mg PO BID 06/15/19 08/05/19 History Aspirin [Aspirin EC] 81 mg PO DAILY 08/05/19 08/05/19 History Atorvastatin Calcium [Lipitor] 40 mg PO DAILY 08/05/19 08/05/19 History Polyethylene Glycol 3350 [Miralax] 1 tablespoon PO DAILY 08/05/19 08/05/19 History - History PMHx: HTN, HLD, Hypothyroidism, BPH, CAD, Testing for Prostate Cancer PSHx: 3v CABG, cholecystectomy FHx:none Social:denies TAD - Review of Systems General: denies: fever/chills Eyes: denies: vision changes ENT: denies: nasal congestion, rhinorrhea Respiratory: denies: cough, congestion, shortness of breath Cardiovascular: denies: chest pain, edema Gastrointestinal: denies: nausea, vomiting, diarrhea, constipation Skin: denies: rashes, lesions Musculoskeletal: denies: pain, tenderness Neurological: denies: numbness, weakness - Vital signs BP: 177/91 HR: 96 RR: 16 Tmax: 97.9 Pox: 98% on RA - Physical Exam Constitutional: NAD, awake, alert and oriented HEENT: normocephalic and atraumatic, MMM -HEENT: poor dentition and had abraision on posterior palate. Neck: supple, no LAD Heart: RRR, normal S1/S2, pulses present, no edema Lungs: CTAB, no respiratory distress Abdomen: soft, non-tender, bowel sounds present Musculoskeletal: normal structure, normal tone Neurological: CN II-XII intact Skin: no rash/lesions Heme/Lymphatic: no unusual bruising or bleeding Psychiatric: normal mood and affect FMR H&P: Results - Labs Result Diagrams: 08/05/19 10:55 08/05/19 13:43 Lab results: WBC 6.4 thou/uL (4.8-10.8) 08/05/19 10:55 Hgb 14.3 g/dL (14.0-18.0) 08/05/19 10:55 Hct 44.6 % (42.0-52.0) 08/05/19 10:55 MCV 97.3 fL (78.0-98.0) 08/05/19 10:55 Plt Count 208 thou/uL (130-400) 08/05/19 10:55 Neutrophils % 58.2 % (42.0-75.0) 08/05/19 10:55 Sodium 135 mmol/L (136-145) L 08/05/19 10:55 Potassium 5.9 mmol/L (3.5-5.1) H 08/05/19 10:55 Chloride 105 mmol/L (98-107) 08/05/19 10:55 Carbon Dioxide 19 mmol/L (23-31) L 08/05/19 10:55 BUN 15 mg/dL (8.4-25.7) 08/05/19 10:55 Creatinine 1.19 mg/dL (0.7-1.3) 08/05/19 10:55 Glucose 233 mg/dL (83-110) H 08/05/19 10:55 Calcium 9.3 mg/dL (7.8-10.44) 08/05/19 10:55 Total Bilirubin 0.4 mg/dL (0.2-1.2) 08/05/19 10:55 AST 19 U/L (5-34) 08/05/19 10:55 ALT 11 U/L (8-55) 08/05/19 10:55 Alkaline Phosphatase 55 U/L (40-110) 08/05/19 10:55 B-Natriuretic Peptide 28.7 pg/mL (0-100) 08/05/19 10:55 Serum Total Protein 7.3 g/dL (5.8-8.1) 08/05/19 10:55 Albumin 4.1 g/dL (3.4-4.8) 08/05/19 10:55 Lipase 26 U/L (8-78) 08/05/19 10:55 - EKG Interpretation EKG: Left fasicular block, RBBB with no changes from previous admission - Radiology Interpretation Chest x-ray Status: report reviewed by me (ZOILA) FMR H&P: A/P - Problem List (1) Chest pain Current Visit: No Status: Acute Code(s): R07.9 - CHEST PAIN, UNSPECIFIED (2) CAD (coronary artery disease) Current Visit: No Status: Chronic Code(s): I25.10 - ATHSCL HEART DISEASE OF [place] CORONARY ARTERY W/O ANG PCTRS (3) Diabetes type 2, controlled Current Visit: No Status: Chronic Code(s): E11.9 - TYPE 2 DIABETES MELLITUS WITHOUT COMPLICATIONS (4) GERD (gastroesophageal reflux disease) Current Visit: No Status: Chronic Code(s): K21.9 - GASTRO-ESOPHAGEAL REFLUX DISEASE WITHOUT ESOPHAGITIS (5) HTN (hypertension) Current Visit: No Status: Chronic Code(s): I10 - ESSENTIAL (PRIMARY) HYPERTENSION (6) Hypothyroidism Current Visit: No Status: Chronic Code(s): E03.9 - HYPOTHYROIDISM, UNSPECIFIED - Plan Pt is an 84 yo M with history of OA, CHF, DMII, BPH, GERD, CAD, HLD, Hypothyroid , and HTN who comes in due to R. arm tingling that occurred 3 days ago and chest pain that started this morning. 1. Chest Pain, Atypical Chest Pain that was burning on L side of chest at rest and resolved and relieved with Tylenol * Trop: Neg x1 * Will Trend * EKG Unchanged since previous admission * CXR: NAF * Heart Score: 6 * Hx of CABG 7 years ago, 3 vessel * ASA started * Mag, Phos,TSH, Lipid panel ordered * ECHO: (2018) EF 50-55%. Moderate LVH. Grade 1 diastolic dysfunction. * Stress (06/11): EF 51% No ischemia 2. CHF No edema on exam or SOB * ECHO: (2018) EF 50-55%. Moderate LVH. Grade 1 diastolic dysfunction. * Will repeat ECHO * Will Lisinopril & Carvedilol 3. DMII BG slightly elevated * Will recheck A1C * Will restart Metformin & Glipizide 4. HTN BP: 177/91 * Will Lisinopril & Carvedilol * Will monitor & adjust as needed 5. HLD * Ordered Lipid panel 6. BPH * Restarted Tamsulosin 7. GERD * Restarted Famotidine 8. Hypothyroid * Will restart Levo Code Status: Full Diet: CC Lines: Peripheral GI PPx: Famotidine DVT PPx: Lovenox PCP: DELMIS Barnhart Dispo: Tele Obs, LOS < 48H. Likely d/c tomorrow. FMR H&P: Upper Level - Plan Date/Time: 08/05/19 1216 IMin DO, have evaluated this patient and agree with findings/plan as outlined by product marketing intern resident. Pertinent changes/additions are listed here. pt 84 year old male presenting via ems for chest pain additionally he was noted to have LBP, difficulty breathing, and sweating after receiving IV contrast for his MRI to eval for prostate cancer. he had chest pain at that time that resolved after giving him medicine in the ambulance. the pain was substernal and left side, pressure like. At time of my evaluation his pain has resolved. he denies any additional complaints, syncope, dyspnea, or headache. of note, he had a nm stress test in this hospital less than 2 months ago that was normal in the ED labs were wnl, trop neg, EKG with RBBB, no st changes given methylpred, famotidine, and benadryl PE General: NAD HEENT: NCAT Chest: even inspiratory and expiratory effort, no retractions Abdomen: non distended, NTTP MSK: no weakness, or loss of ROM noted Extremities: non-edematous, pulses present Neuro: grossly intact, no focal deficits See product marketing intern portion for full ROS, PE, labs and vitals. A/P Chest pain - trop wnl, EKG unchanged from prior admissions, chest pain resolved at this point - significant heart history, recent stress wnl - trend troponin, likely DC tomorrow Dispo: tele obs for monitoring Addendum - Attending - Attending Attestation Date/Time: 08/05/19 6995 I personally evaluated the patient and discussed the management with Dr. Quinn and Dr. Gonzalez I agree with the History, Examination, Assessment and Plan documented above with any addition or exceptions noted below. Admit for chest pain monitoring and hypotension due to adverse reaction due to contrast media from MRI. Admit to obs. Trend trops. Now with improved BP. Noted to be at baseline. Likely demand event with possible small vessel disease. Recent stress in Dec. Would consider repeat in AM, however patient not the best historian. Patient with risk factors present. Could consider cards consult to discuss event for recs or have patient follow up outpatient. Monitor renal function due to hypotensive event. Jared
[2019-08-05] MEDS ORDERED: Acetaminophen 325 MG TAB PO PRN (12:52)
[2019-08-05] MEDS ORDERED: Senokot S 8.6-50 MG TAB PO PRN (12:52)
[2019-08-05] MEDS ORDERED: Ondansetron ODT 4 MG TAB PO PRN (12:52)
[2019-08-05] MEDS ORDERED: Dextrose 5% in Water 1,000 ML IV PRN (12:56)
[2019-08-05] MEDS ORDERED: Dextrose 50% Abboject 50 ML SYRINGE SLOW IVP PRN (12:56)
[2019-08-05] MEDS ORDERED: Insulin Regular 300 UNITS/3 ML VIAL SC PRN ×2 (12:56→21:55)
[2019-08-05 14:01] LABS: Hemoglobin A1c 8.4 % (4.0-6.0)
[2019-08-05 14:13] LABS: Troponin I Less than 0.010 ng/mL (< 0.028)
[2019-08-05 14:33] LABS: Phosphorus 2.2 mg/dL (2.3-4.7)
[2019-08-05 14:36] LABS: Anion Gap 14 mmol/L (10-20); BUN (Urea Nitrogen) 16 mg/dL (8.4-25.7); Calc. Creatinine Clearance 0 mL/min (70-130); Calcium 9.6 mg/dL (7.8-10.44); Carbon Dioxide 21 mmol/L (23-31); Cardiac Risk 4.6 (Less than 4.5); Chloride 105 mmol/L (98-107); Cholesterol 182 mg/dl (< 200 Desired); Estimated GFR-MDRD 57; Glucose 204 mg/dL (83-110); HDL Cholesterol 40 mg/dL (>60 Neg Risk); LDL Cholesterol, Calculated 126 mg/dL; Magnesium 1.6 mg/dL (1.6-2.6); Potassium 5.9 mmol/L (3.5-5.1); Sodium 134 mmol/L (136-145); Triglycerides 81 mg/dL (Less than 150)
[2019-08-05 16:40] VITALS: BMI 25.9
[2019-08-05] MEDS: metFORMIN 500 MG TAB PO SCH (17:16)
[2019-08-05] MEDS: glipiZIDE 5 MG TAB PO SCH (17:16)
[2019-08-05 17:30] LABS: Troponin I Less than 0.010 ng/mL (< 0.028)
[2019-08-05 20:33] LABS: Potassium 4.6 mmol/L (3.5-5.1)
[2019-08-05] MEDS: Carvedilol 6.25 MG TAB PO SCH (20:47)
[2019-08-05] MEDS ORDERED: Famotidine 20 MG TAB PO SCH (21:00)
[2019-08-06 04:51] LABS: #Lymphocytes 2.6 thou/uL (1.20-3.40); #Monocytes 0.5 thou/uL (0.11-0.59); #Neutrophils 6.3 thou/uL (1.40-6.50); %Basophils 0.5 % (0.0-1.0); %Eosinophils 0.1 % (0.0-10.0); %Lymphocytes 27.6 % (21.0-51.0); %Monocytes 5.2 % (0.0-10.0); %Neutrophils 66.7 % (42.0-75.0); Hemoglobin 13.2 g/dL (14.0-18.0); Mean Corpuscular HGB CONC 32.9 g/dL (32.0-36.0); Mean Corpuscular Hemoglobin 31.4 pg (27.0-31.0); Mean Corpuscular Volume 95.7 fL (78.0-98.0); Mean Platelet Volume 8.5 fL (7.4-10.4); Platelet Count 211 thou/uL (130-400); RBC Distribution Width 13.8 % (11.5-14.5); White Blood Cell (WBC) Count 9.5 thou/uL (4.8-10.8)
[2019-08-06 05:05] LABS: Anion Gap 14 mmol/L (10-20); BUN (Urea Nitrogen) 22 mg/dL (8.4-25.7); Calc. Creatinine Clearance 45 mL/min (70-130); Calcium 9.2 mg/dL (7.8-10.44); Carbon Dioxide 21 mmol/L (23-31); Chloride 105 mmol/L (98-107); Estimated GFR-MDRD 55; Glucose 148 mg/dL (83-110); Potassium 4.5 mmol/L (3.5-5.1); Sodium 135 mmol/L (136-145)
[2019-08-06] MEDS ORDERED: Levothyroxine Sodium 50 MCG TAB PO SCH (06:00)
--- NOTE | 2019-08-06 06:15 | PDOC.FM ---
- Subjective Subjective: He is doing well today. He has no complaints. He ate all his breakfast and would like more. - Objective MAR Reviewed: Yes Vital Signs & Weight: Vital Signs (12 hours) Temp Pulse Resp BP BP Pulse Ox 08/06/19 04:41 98.0 F 83 14 146/75 H 95 08/06/19 00:06 98.0 F 78 16 111/57 L 96 08/05/19 20:47 132/65 08/05/19 19:43 98.1 F 97 16 132/65 95 Weight Weight 74.933 kg I&O: 08/04/19 08/05/19 08/06/19 06:59 06:59 06:59 Intake Total 500 Output Total 225 Balance 275 Result Diagrams: 08/06/19 04:33 08/06/19 04:33 EKG Reviewed by me: Yes (SR-ST, 70-123, tachycardia was non-sustained) Phys Exam - Physical Examination Constitutional: NAD HEENT: moist MMs, oral pharynx no lesions Neck: no nodes, supple Respiratory: no wheezing, no rales, no rhonchi, clear to auscultation bilateral Cardiovascular: RRR, no significant murmur, no rub Gastrointestinal: soft, non-tender, positive bowel sounds Musculoskeletal: no edema, pulses present Neurological: moves all 4 limbs Psychiatric: normal affect Skin: no rash, normal turgor Dx/Plan (1) Chest pain Code(s): R07.9 - CHEST PAIN, UNSPECIFIED Status: Acute (2) CAD (coronary artery disease) Code(s): I25.10 - ATHSCL HEART DISEASE OF [place] CORONARY ARTERY W/O ANG PCTRS Status: Chronic (3) Diabetes type 2, controlled Code(s): E11.9 - TYPE 2 DIABETES MELLITUS WITHOUT COMPLICATIONS Status: Chronic (4) GERD (gastroesophageal reflux disease) Code(s): K21.9 - GASTRO-ESOPHAGEAL REFLUX DISEASE WITHOUT ESOPHAGITIS Status: Chronic (5) HTN (hypertension) Code(s): I10 - ESSENTIAL (PRIMARY) HYPERTENSION Status: Chronic (6) Hypothyroidism Code(s): E03.9 - HYPOTHYROIDISM, UNSPECIFIED Status: Chronic - Plan Plan: Pt is an 84 yo M with history of OA, CHF, DMII, BPH, GERD, CAD, HLD, Hypothyroid , and HTN who comes in due to R. arm tingling that occurred 3 days ago and chest pain that started this morning. 1. Chest Pain, Atypical Chest Pain that was burning on L side of chest at rest and resolved and relieved with Tylenol * Trop: Neg x3 * EKG Unchanged since previous admission * CXR: NAF * Heart Score: 6 * Hx of CABG 7 years ago, 3 vessel * ASA started * Atorvastatin not started. Was started in May, but d/c by PCP. * Phos low * ECHO: (2017) EF 50-55%. Moderate LVH. Grade 1 diastolic dysfunction. * Stress (06/11): EF 51% No ischemia 2. CHF No edema on exam or SOB * ECHO: (2018) EF 50-55%. Moderate LVH. Grade 1 diastolic dysfunction. * Will repeat ECHO * Will Lisinopril & Carvedilol 3. DMII BG slightly elevated * A1C: 8.4 * Will restart Metformin & Glipizide 4. HTN BP: 177/91 * Will Lisinopril & Carvedilol * Will monitor & adjust as needed 5. HLD * Chol: 182, LDL: 126, HDL 46, Tri * Atorvastatin not started. Was started in May, but d/c by PCP. 6. BPH * Restarted Tamsulosin 7. GERD * Restarted Famotidine 8. Hypothyroid * Restart Levo * TSH wnl Code Status: Full Diet: CC Lines: Peripheral GI PPx: Famotidine DVT PPx: Lovenox PCP: DELMIS Barnhart Dispo: Tele Obs, LOS < 48H. Likely d/c today. Addendum - Attending - Attending Attestation Date/Time: 08/06/19 3346 I personally evaluated the patient and discussed the management with Dr. Quinn I agree with the History, Examination, Assessment and Plan documented above with any addition or exceptions noted below. Given this is the second similar episode in the past 3 months, will consult cardiology to recommend further work up given negative stress test in May. This is likely contrast reaction but had known CAD. dispo pending recs.
[2019-08-06] MEDS: glipiZIDE 5 MG TAB PO SCH (07:51)
[2019-08-06] MEDS: metFORMIN 500 MG TAB PO SCH (07:51)
[2019-08-06] MEDS: Carvedilol 6.25 MG TAB PO SCH (07:51)
[2019-08-06 08:24] VITALS: TEMP 98.4
[2019-08-06] MEDS ORDERED: Polyethylene Glycol 3350 17 GM Packet PO SCH (09:00)
[2019-08-06] MEDS ORDERED: Aspirin 81 mg Enteric Coated Tablet PO SCH (09:00)
[2019-08-06] MEDS ORDERED: Lisinopril 5 MG TAB PO SCH (09:00)
[2019-08-06] MEDS ORDERED: Famotidine 20 MG TAB PO SCH (09:00)
[2019-08-06] MEDS ORDERED: Enoxaparin Sodium 40 MG/0.4 ML SYRINGE SC SCH (09:00)
[2019-08-06] MEDS ORDERED: Tamsulosin HCl 0.4 MG CAP PO SCH (09:00)
[2019-08-06] MEDS ORDERED: Lisinopril 20 MG TAB PO SCH (09:00)
[2019-08-06] MEDS: PHOS-NAK 1 PKT PACK PO SCH ×2 (09:27→16:28)
[2019-08-06 11:03] VITALS: BP 121/60
--- NOTE | 2019-08-06 18:08 | CON ---
DATE OF CONSULTATION: 08/06/2019 INDICATION FOR CONSULTATION: An 84-year-old gentleman with a history of coronary artery disease, diabetes, hypertension, hypercholesterolemia, who was undergoing a CT scan yesterday for prostate problems. This was ordered by Dr. Blanchard. While he was in the CT scan, he developed chest discomfort, chest pressure, and also said he had some to the point where he could not speak, perhaps some nausea, but after that it lasted about half an hour, then resolved. It appears that the patient had some type of contrast reaction. The EMS was called. He was taken to the emergency room. Since he had complaints of chest discomfort and history of coronary artery disease, he was admitted to the hospital for rule out myocardial infarction protocol. His cardiac enzymes have remained negative. He did undergo stress testing back in May 2019, which showed no evidence of underlying ischemia. He did undergo bypass surgery in [address] Priest with a ORTIZ to the left anterior descending artery, saphenous vein graft to diagonal branch, obtuse marginal branch of left circumflex and also to the ramus branch. All his [place] vessels were anywhere between 1.25 to 2 mm in diameter. He has done relatively well since that time, and has been followed by Dr. Colon on a routine basis. He had not been complaining of any pain prior to undergoing the CT scan, and says he has been fine since that time, he denied any other symptoms. His EKG did show some evidence of T-wave inversions, which could be due to hypertrophy. He does have T-wave inversions, but he had no acute ST-segment elevation. PAST MEDICAL HISTORY: Significant for coronary artery disease. He has had bypass surgery as noted above. He has history of hypertension, diabetes, and hypercholesterolemia. He has had a history of cholecystectomy about 2 to 3 years ago. He has no allergies. He has no history of tobacco abuse. FAMILY HISTORY: Noncontributory. REVIEW OF SYSTEMS: From what I could obtain is unremarkable. He denies any complaints until he had the episode yesterday. MEDICATIONS: Prior to admission include, 1. Aspirin 81 mg a day. 2. Ranitidine 150 mg a day. 3. Glipizide ER 5 mg once every 24 hours. 4. Levothyroxine 50 mcg capsules. 5. Tamsulosin ER 0.4 mg in 24-hour capsules. 6. Metformin 1000 mg b.i.d. 7. Coreg 12.5 mg b.i.d. 8. Lisinopril 10 mg a day. 9. Simvastatin 40 mg a day. PHYSICAL EXAMINATION: GENERAL: A well-developed, well-nourished, very healthy, happy gentleman, who is in no acute distress at this time. VITAL SIGNS: Stable. He is afebrile. Heart rate 76, respiratory rate 16, blood pressure 121/60, and O2 saturation 95%. HEENT: Head to be normocephalic and atraumatic. Carotid pulses are present without any bruits. CHEST: Clear to auscultation. There are no rales, rhonchi, or wheezing. CARDIOVASCULAR: Regular rate and rhythm. There is normal S1 and S2. I cannot hear an S3 or an S4. There are no significant murmurs, heaves, thrills, bruits, or rubs. He has a well-healed midline surgical incision after median sternotomy. ABDOMEN: Soft and nontender. He has also well-healed incision after a laparoscopic cholecystectomy was performed. EXTREMITIES: No clubbing, cyanosis, or edema. I cannot palpate pedal pulses. He has a well-healed surgical incision in the left lower extremity after saphenous vein graft retrieval. NEUROLOGIC: The patient appears to be fully intact. He has normal strength, normal tone. He is able to walk without any difficulties from the sofa to the bed. SKIN: Warm and dry. PSYCHOSOCIAL: He appears to be also stable. LABORATORY DATA: Negative evidence of myocardial infarction. Cardiac enzymes are unremarkable. His WBC was 9.5, hemoglobin was 13.2, platelet count was 211,000. His potassium was 4.8, BUN was 22, and creatinine 1.24. His LDL is 126, which is elevated for pts. with coronary artery disease. PSA was 6.93. His BNP was 28. No indication of heart failure. DIAGNOSTIC STUDIES: EKG showed as noted normal sinus rhythm with T-wave inversions, most likely associated with left ventricular hypertrophy and nonspecific EKG changes. He did have a negative stress test as noted above back in May. He also has what appears to be a possible incomplete right bundle branch block, which could account for some of the ST-segment changes. IMPRESSION: 1. An elderly gentleman, 84-year-old with history of coronary artery disease, bypass surgery, and risk factors of coronary artery disease, which include still elevated LDL level, which will need to be addressed. 2. History of bypass surgery in the past. These vessels were bypassed. He has small vessels. [place] vessels are small. Since he has no evidence of ischemia at this time and then stress test was unremarkable in May, it is unlikely I would not advise him to undergo a repeat stress test as he is completely asymptomatic. It appears that he had had a reaction to the contrast, which caused the acute problems and these resolved after about half an hour without any acute intervention. 3. History of hypertension. We will need to continue his medications. His blood pressure is under good control at this time. 4. Hypercholesterolemia. We will need to address this either with his primary care physician or with Dr. Colon. We would suggest he continue with his statin medications. He had been on simvastatin at 40 mg. May need to switch him over to Lipitor either increase the dose of the simvastatin. I would suggest he repeat this level in about 3 months. 5. Apparently prostatic hypertrophy. He has been seen by Dr. Blanchard. I do not know the results of the CT scan, but the PSA level was elevated. At this time, from a cardiac standpoint, he appears to be stable. He also had an echocardiogram performed in May, which showed a normal ejection fraction prior to undergoing bypass surgery back in 2011. He did have decrease in left ventricular function. This has improved after revascularization. At this time, I believe the patient is stable for discharge. He can follow Dr. Blanchard for the results of the CT scan. I can follow Dr. Colon or primary care physician for continuation of care of the hypercholesterolemia. We will continue his other cardiac medications. Job ID: [id number] [facility]
--- NOTE | 2019-08-07 03:31 | DIS ---
DATE OF ADMISSION: 08/05/2019 DATE OF DISCHARGE: 08/06/2019 RESIDENT: Aroldo Quinn MD ADMITTING ATTENDING: Kenna Ramírez MD. DISCHARGE ATTENDING: Atul Longoria MD CONSULTS: * Cardiology, Dr. Vegas on 08/06/2019. She thinks that the chest pain was due to an allergic reaction from contrast and recommends no further workup at this time. PROCEDURES: Chest x-ray on 08/05/2019, had no acute process. PRIMARY DIAGNOSES: 1. Chest pain, atypical. 2. Congestive heart failure. SECONDARY DIAGNOSES: 1. Diabetes, type 2. 2. Hypertension. 3. Hyperlipidemia. 4. BPH. 5. Gastroesophageal reflux disease. 6. Hypothyroidism. DISCHARGE MEDICATIONS: Continue all home medications. No medications added during this hospital stay. Discontinued medications: 1. Tylenol 2. Lovenox. 3. Glucagon. 4. Humulin. 5. Zofran. 6. MiraLAX. 7. Senokot. HISTORY OF PRESENT ILLNESS: Mr. Wooten is an 84-year-old male with past medical history of hypertension, hyperlipidemia, diabetes, and coronary artery disease, who presents for left- sided chest pain. He is having an MRI done when he had a reaction and his blood pressure dropped. He said he did develop chest pain just prior to having the contrast administered. He said the chest pain he had felt like pressure on the left side of his chest with no radiation. The pain lasted for about 30 minutes until he was given an aspirin in the ambulance. His pressures were 90/ 60 reported by EMS. In the ED, his labs were BNP of 28.7. The chest x-ray as noted above with no acute process. Troponin negative x1. Lipase 26. Sodium 135, bicarb of 19, glucose of 223, and creatinine of 1.19. 1. Chest pain, atypical. Chest pain that was burning with pressure on the left side of the chest at rest and relieved with Tylenol. * Troponins were negative x3. * EKG was unchanged from previous admission. * HEART score was 6. * Chest x-ray as noted above. * History of CABG 7 years ago, three-vessel. * Aspirin started. * Phosphorus was low and replaced. * Last echo was performed in 2018 showed an EF of 50% to 55%, with moderate left ventricular hypertrophy and grade 1 diastolic dysfunction. * Stress on 06/11 showed an EF of 51% with no ischemia, but chest pain reproduced with administration of adenosine. 2. CHF. * No edema on exam or shortness of breath. a. Echo, as noted above. * We will not repeat echo at this time. * Restarted lisinopril and carvedilol. 3. Diabetes, type 2. Blood glucose slightly elevated. * A1c of 8.4. * We will continue metformin and glipizide that are home medications. * Goal A1c of 8 due to syncope with a tighter glycemic control. 4. Hypertension. Blood pressure 177/91 this morning, but improved. * Continue home medications of lisinopril and carvedilol. * Monitor and adjust as needed. 5. Hyperlipidemia. Cholesterol of 182, LDL 126, HDL 46, and triglycerides of 81. 6. BPH. * Restart tamsulosin. 7. GERD. * Restart famotidine. 8. Hypothyroid. * Restart levothyroxine. * TSH within normal limits. DISPOSITION: Stable. DISCHARGE INSTRUCTIONS: 1. Location. Home. 2. Diet. Diabetic heart healthy, low-sodium. 3. Activity: As tolerated. 4. Follow up with Dr. Manuel Barnhart at [facility] in 7 days from discharge. Job ID: [id number] [facility]
== END 2019-08-06 16:35 | disposition home or self-care (01) ==
LOC: ERS 10:30 → ERHOLD 12:09 → 2SW 15:47
PROVIDERS: ADMIT Family Medicine; ATTEND Family Medicine
DX: R07.89 Other chest pain (principal); I11.0 Hypertensive heart disease with heart failure; I50.9 Heart failure, unspecified; I25.10 Atherosclerotic heart disease of native coronary artery without angina pectoris; E11.9 Type 2 diabetes mellitus without complications; E03.9 Hypothyroidism, unspecified; E78.5 Hyperlipidemia, unspecified; E78.00 Pure hypercholesterolemia, unspecified; K21.9 Gastro-esophageal reflux disease without esophagitis; N40.0 Benign prostatic hyperplasia without lower urinary tract symptoms; Z79.82 Long term (current) use of aspirin; Z79.84 Long term (current) use of oral hypoglycemic drugs; Z79.899 Other long term (current) drug therapy; Z91.041 Radiographic dye allergy status; Z95.1 Presence of aortocoronary bypass graft
CPT/HCPCS: 71045; 72197; 80048 ×2; 80061; 82962 ×2; 83036; 83690; 83735; 83880; 84100; 84132; 84484 ×2; 85025; 93005; 96372; 96374; 96375; 99285; G0378 ×2; 36415; 36416; 80053; 84443; A9579; J1200; J1650; J1815; J2930; S0028

== ENCOUNTER 2019-08-20 08:34 | Day surgery (SDC) | payer MEDICARE, MEDICAID ==
[2019-08-19 17:22] VITALS: BMI 27.1
[~2019-08-20 08:34] MED LIST: FLU VACC TS2019-20(65YR UP)/PF 180 MCG/0.5 ML SYRINGE IM ONE; Prevnar 13-Val Conj/PF 0.5 ML SYRINGE IM ONE
[2019-08-20 09:04] LABS: INR-International Normal Ratio 0.9; PTT 28.8 SEC (22.9-36.1); Prothrombin Time 12.5 SEC (12.0-14.7)
[2019-08-20 10:29] VITALS: BP 169/76; TEMP 97.2
[2019-08-20] MEDS ORDERED: Sodium Bicarbonate 2.5 MEQ/5 ML VIAL ONE (10:32)
[2019-08-20] MEDS ORDERED: Acetaminophen 500 MG TAB ONE (11:08)
== END 2019-08-20 11:50 | disposition home or self-care (01) ==
LOC: RAD 08:34
PROVIDERS: ATTEND Internal Medicine Hematology & Oncology
DX: R59.0 Localized enlarged lymph nodes (principal); E03.9 Hypothyroidism, unspecified; E11.9 Type 2 diabetes mellitus without complications; I10 Essential (primary) hypertension; E78.5 Hyperlipidemia, unspecified; Z53.8 Procedure and treatment not carried out for other reasons; Z79.82 Long term (current) use of aspirin; Z79.84 Long term (current) use of oral hypoglycemic drugs; Z79.899 Other long term (current) drug therapy; Z91.041 Radiographic dye allergy status; Z95.1 Presence of aortocoronary bypass graft
CPT/HCPCS: 36415; 85610; 85730

== ENCOUNTER 2019-10-21 11:44 | Outpatient (CLI) | payer MEDICARE, MEDICAID, OTHER ==
[2019-10-21 12:09] LABS: Hemoglobin 13.4 g/dL (14.0-18.0); Mean Corpuscular HGB CONC 32.7 g/dL (32.0-36.0); Mean Corpuscular Hemoglobin 31.8 pg (27.0-31.0); Mean Corpuscular Volume 97.2 fL (78.0-98.0); Mean Platelet Volume 8.9 fL (7.4-10.4); Platelet Count 205 thou/uL (130-400); RBC Distribution Width 13.7 % (11.5-14.5); White Blood Cell (WBC) Count 6.7 thou/uL (4.8-10.8)
[2019-10-21 12:32] LABS: Anion Gap 14 mmol/L (10-20); BUN (Urea Nitrogen) 13 mg/dL (8.4-25.7); Calc. Creatinine Clearance 0 mL/min (70-130); Calcium 9.4 mg/dL (7.8-10.44); Carbon Dioxide 22 mmol/L (23-31); Chloride 102 mmol/L (98-107); Estimated GFR-MDRD 54; Glucose 286 mg/dL (83-110); Potassium 4.9 mmol/L (3.5-5.1); Sodium 133 mmol/L (136-145)
[2019-10-21 17:59] LABS: SARS-CoV-2 MS2 Positive; SARS-CoV-2 N Gene Negative; SARS-CoV-2 S Gene Negative; SARS-CoV-2 orf1ab Negative
== END 2019-10-21 11:45 | disposition home or self-care (01) ==
LOC: LABBT 11:44
PROVIDERS: ATTEND Internal Medicine
DX: Z01.812 Encounter for preprocedural laboratory examination (principal); Z11.59 Encounter for screening for other viral diseases; R97.20 Elevated prostate specific antigen [PSA]
CPT/HCPCS: 80048; 85027; U0002; 87635; U0003

== ENCOUNTER 2019-10-23 08:23 | Day surgery (SDC) | payer MEDICARE, MEDICAID ==
[2019-10-07 09:56] VITALS: BMI 25.5
[2019-10-23] MEDS ORDERED: Fentanyl 100 MCG/2 ML VIAL ONE (10:08)
[2019-10-23] MEDS ORDERED: Sodium Bicarbonate 2.5 MEQ/5 ML VIAL ONE (10:25)
[2019-10-23] MEDS ORDERED: PROPOFOL 200 MG/20 ML VIAL ONE (11:27)
[2019-10-23] MEDS ORDERED: EPHEDRINE 25 MG/5 ML SYRINGE ONE (11:27)
--- NOTE | 2019-10-26 14:42 | CT ---
PROCEDURE: CT Abd Perc Retroperitneal Bx PROVIDED CLINICAL HISTORY: Patient with history of prostate cancer and now with rising PSA and retroperitoneal lymphadenopathy. Biopsy of a periaortic lymph node was requested. COMPARISON: None TECHNIQUE: The procedure including the risks and complications were explained to the patient, and informed conse nt was obtained. Anesthesia was performed by the anesthesiology department. Patient was placed on the CT scan table in the prone position. Limited noncontrasted CT scan examination was obtained throu gh the level of the kidneys with grid localizer in place. An area overlying a left para-aortic lymph node was marked, and the area was meticulously prepped and draped in usual sterile fashion. The skin and subcutaneous tissues at the intended puncture site were infiltrated with buffered 1% lid ocaine for local anesthesia. Small skin incision was made. A 17-gauge guide needle was advanced followed by [address] images. This was repeated until the tip of the needle was placed at the peripheral aspect of the left para-aortic lymph node. A total of two 18-gauge core needle biopsy specimens were obtained utilizing coaxial technique. An additional specimen was requested by t maicol pathologist. Atypical cells were present on the 3 separate core needle biopsy specimens. The needle was removed, and hemostasis was achieved with direct pressure. Limited noncontrasted CT im ages were obtained through the level of biopsy which does not demonstrate evidence of a hematoma or free fluid at this site. Small amount of gas is seen along the needle tract. The patient tolerated the procedure well and without immediate complication. Patient was transported back to anesthesia recovery for further monitoring prior to discharge. IMPRESSION: Technically successful CT-guided percutaneous biopsy of a left para-aortic lymph node. Final patholog y result is pending. Transcribed Date/Time: 10/26/2019 2:42 PM
== END 2019-10-23 14:25 | disposition home or self-care (01) ==
LOC: SDC/OP 08:23
PROVIDERS: ATTEND Internal Medicine Hematology & Oncology
PROC: 07BD3ZX Excision of Aortic Lymphatic, Percutaneous Approach, Diagnostic (ICD-10-PCS; principal; 2019-10-23)
DX: C82.13 Follicular lymphoma grade II, intra-abdominal lymph nodes (principal); R97.20 Elevated prostate specific antigen [PSA]; C61 Malignant neoplasm of prostate; I10 Essential (primary) hypertension; Z79.82 Long term (current) use of aspirin; Z79.84 Long term (current) use of oral hypoglycemic drugs; Z91.041 Radiographic dye allergy status; Z95.1 Presence of aortocoronary bypass graft
CPT/HCPCS: 49180; 77012; 88307; 88333; 88334; 88341; 88342; 88360; 88377; J2704; J3010

== ENCOUNTER 2019-11-20 08:11 | Outpatient (CLI) | payer MEDICARE, MEDICAID ==
--- NOTE | 2019-11-20 11:52 | PET ---
Radionucleotide PET with CT attenuation correction HISTORY: Follicular lymphoma grade 2. Initial staging. FINDINGS: Physiologic uptake of radiotracer throughout the enteric system and along each urinary trac t. Left level 2A 1.0 cm lymph node max SUV 3.7 Left supraclavicular 1.3 cm lymph node max SUV 3.8. Soft tissue smoothly marginated expansion of the left maxillary sinus extends through the medial wall . Increased activity with max SUV 3.4. Subcarinal 1.0 cm lymph node max SUV 3.3 Right hilar lymph node max SUV 4.0 Left hilar lymph node max SUV 3.4 Lower thoracic left para-aortic 1.8 cm lymph node max SUV 3.5 Bulky, partially confluent retroperitoneal hypermetabolic adenopathy, centered around the level of th e kidneys. Largest lymph node is between the IVC and aorta, 1.6 cm, max SUV 9.2. A focal abnormality at the right side of the prostate gland shows max SUV 8.8. Small focus of increased activity along the anterior aspect of the rectal wall max SUV 8.8. The inten sity and location worrisome for a mass rather than related to stool. Nondiagnostic CT attenuation correction images show prominent calcification throughout the coronary a rteries and other arterial structures. Scattered calcified lung granulomata and tiny nonspecific subpleural nodules again seen. Emphysematous changes of the lungs also evident. Small hiatal hernia. Gallbladder is surgically absent. Large gas-filled diverticulum projects medially from the second portion the duodenum. Diverticula also arise from the colon without adjacent inflammation. There are degenerative changes throughout the lumbar spine. IMPRESSION : Hypermetabolic adenopathy above and below the level of the diaphragm. Douville score 5. Hypermetabolic soft tissue density expansion of the left maxillary sinus. This could be inflammatory or neoplastic. Hypermetabolic focus involving the right side of the prostate gland. Please correlate clinically. Small hypermetabolic focus along the anterior wall of the lower rectum. Please consider endoscopic ev aluation for mass. Prominent atherosclerosis. Small hiatal hernia. Diverticulosis. No evidence of diverticulitis.
== END 2019-11-20 08:12 | disposition home or self-care (01) ==
LOC: PET 08:11
PROVIDERS: ATTEND Internal Medicine Hematology & Oncology
DX: C82.10 Follicular lymphoma grade II, unspecified site (principal); R59.0 Localized enlarged lymph nodes; I70.90 Unspecified atherosclerosis; K44.9 Diaphragmatic hernia without obstruction or gangrene; K57.90 Diverticulosis of intestine, part unspecified, without perforation or abscess without bleeding
CPT/HCPCS: 78815; A9552

== ENCOUNTER 2019-12-29 13:59 | Observation (INO) | payer MEDICARE, OTHER ==
[~2019-12-29 13:59] MED LIST changes: -FLU VACC TS2019-20(65YR UP)/PF 180 MCG/0.5 ML SYRINGE IM ONE; +Iopamidol-370 76% 500 ML 1 ML ONE; -Prevnar 13-Val Conj/PF 0.5 ML SYRINGE IM ONE
[2019-12-29 14:56] LABS: #Basophils 0.1 thou/uL (0.0-0.2); #Eosinphils 0.2 thou/uL (0.0-0.7); #Lymphocytes 2.7 thou/uL (1.20-3.40); #Monocytes 0.5 thou/uL (0.11-0.59); #Neutrophils 3.1 thou/uL (1.40-6.50); %Basophils 1.1 % (0.0-1.0); %Eosinophils 2.9 % (0.0-10.0); %Lymphocytes 41.1 % (21.0-51.0); %Monocytes 7.3 % (0.0-10.0); %Neutrophils 47.6 % (42.0-75.0); Hemoglobin 12.8 g/dL (14.0-18.0); Mean Corpuscular HGB CONC 32.6 g/dL (32.0-36.0); Mean Corpuscular Hemoglobin 30.8 pg (27.0-31.0); Mean Corpuscular Volume 94.7 fL (78.0-98.0); Mean Platelet Volume 8.8 fL (7.4-10.4); Platelet Count 214 thou/uL (130-400); RBC Distribution Width 13.5 % (11.5-14.5); Red Blood Cell (RBC) Count 4.17 mill/uL (4.70-6.10); White Blood Cell (WBC) Count 6.6 thou/uL (4.8-10.8)
[2019-12-29 15:17] LABS: ALT (SGPT) 11 U/L (8-55); AST (SGOT) 14 U/L (5-34); Albumin 4.1 g/dL (3.4-4.8); Alkaline Phosphatase 60 U/L (40-110); Anion Gap 12 mmol/L (10-20); BUN (Urea Nitrogen) 10 mg/dL (8.4-25.7); Bilirubin, Total 0.3 mg/dL (0.2-1.2); Calc. Creatinine Clearance 0 mL/min (70-130); Calcium 9.2 mg/dL (7.8-10.44); Carbon Dioxide 23 mmol/L (23-31); Chloride 100 mmol/L (98-107); Estimated GFR-MDRD 62; Globulin 2.8 g/dL (2.4-3.5); Glucose 149 mg/dL (83-110); Protein, Total 6.9 g/dL (5.8-8.1); Sodium 130 mmol/L (136-145)
--- NOTE | 2019-12-29 15:30 | RAD ---
Chest views HISTORY: Chest and abdomen pain. COMPARISON: 08/05/2019. FINDINGS: Cardiac silhouette is magnified by projection. Pulmonary vasculature remains upper limits o f normal. Mediastinum is midline with aortic calcification and postoperative changes. No lobar consolidation or evidence of pneumothorax. IMPRESSION : Atherosclerosis. Chronic-type findings are stable. No active cardiopulmonary abnormalities are demons trated.
[2019-12-29] MEDS ORDERED: diphenhydrAMINE 50 MG/ML VIAL ONE (15:45)
[2019-12-29] MEDS ORDERED: Famotidine/PF 20 mg/2ml Vial ONE (15:45)
[2019-12-29] MEDS ORDERED: methylPREDNISolone Sod Succ/PF 125 MG/2 ML VIAL ONE (15:45)
[2019-12-29] MEDS ORDERED: Nitroglycerin 2% Ointment 1 INCH/1 GM Packet ONE (16:07)
[2019-12-29] MEDS ORDERED: Aspirin Chewable 81 MG TAB ONE (16:07)
[2019-12-29 16:40] LABS: Bilirubin Negative (Negative); Blood, Urine Negative (Negative); Clarity Clear (Clear); Glucose, Urine (Dipstick) 200 mg/dL (Negative); Ketone, Urine Negative (Negative); Leukocyte Negative Leu/uL (Negative); Nitrite Negative (Negative); Protein, Urine (Dipstick) Negative (Neg-Trace); Specific Gravity, Urine 1.006 (1.002-1.036); Urobilinogen Normal mg/dL (Less than 2); pH, Urine 6.5 (5.0-9.0)
--- NOTE | 2019-12-29 17:05 | CT ---
CTA OF THE CHEST AND ABDOMEN UTILIZING AN AORTIC DISSECTION PROTOCOL AND 3-D REFORMATTED IMAGING INDICATION: 84-year-old male with abdominal pain COMPARISON: None FINDINGS: Aorta: No acute stenosis or occlusion is evident. No dissection is demonstrated. There is mild ectasi a of the infrarenal abdominal aorta measuring 2.9 cm which is stable to a prior dated July 09, 2019. Central pulmonary artery: No central pulmonary embolus demonstrated. Additional thorax findings: Small sub-4 mm pulmonary nodule within the right middle lobe and right lo wer lobe are stable. There is subsegmental atelectasis involving both lower lobes. There are coronary artery and thoracic aortic calcifications. There is post CABG change. Additional abdominal findings: There is small hiatal hernia. There are prominent para-aortic lymph no daniella. One of the largest within the left periaortic region measures 2 cm were previously it measured 1.6 cm. There are mildly prominent retrocrural lymph nodes. Osseous structures: No acute osseous abnormality. There are DISH like changes involving the thoracolu mbar spine. There is scattered degenerative and osteoarthritic change present. IMPRESSION: 1. No appreciable aortic stenosis, occlusion or aneurysmal formation demonstrated. Stable mild ectasi a of the infrarenal abdominal aorta.
[2019-12-29 19:05] LABS: Troponin I 0.018 ng/mL (< 0.028)
--- NOTE | 2019-12-29 19:48 | PDOC.FPRHP ---
- History of Present Illness Chief Complaint: chest pain History of Present Illness: 84 y/o M with PMHx CAD s/p CABG, HTN, DM, HLD, prostate cancer presented to the ED for chest pain. Reports one episode of chest pain at approximately 1100 while at home, described as burning, left sided chest pain without radiation, rated 6/10. Denies any activity at onset of chest pain, and reports it resolved on its own after approximately one hour. States he felt weak during the episode. He did not try to take any medication for his pain at home. He had colonoscopy with polypectomy on 12/22, and he also c/o small amount of bleeding per rectum today. ED Course: Nitro paste, ASA, benadryl, methylprednisolone, pepcid given in ED. CTA r/o dissection without evidence of dissection or PE. CXR without consolidation or pneumothorax. - Allergies/Adverse Reactions Allergies Allergy/AdvReac Type Severity Reaction Status Date / Time Iodinated Contrast Media Allergy Verified 12/30/19 01:56 IV Contrast Allergy Intermediate SHORTNESS Uncoded 12/30/19 01:55 OF BREATH - Home Medications Medication Instructions Recorded Confirmed Type Carvedilol [Coreg] 12.5 mg PO BID 02/19/16 12/30/19 History Levothyroxine Sodium 50 mcg PO DAILY 02/19/16 12/30/19 History Lisinopril 10 mg PO DAILY 02/19/16 12/30/19 History Tamsulosin HCl [Flomax] 0.4 mg PO DAILY 02/19/16 12/30/19 History metFORMIN HCl 1,000 mg PO BID 02/19/16 12/30/19 History glipiZIDE 5 mg PO BID 06/15/19 12/30/19 History Aspirin [Aspir-Low] 81 mg PO DAILY 10/21/19 12/30/19 History PHENYLeph/Pramoxin/Glycr/W.Pet 26 gm RC PRN PRN #1 cream..g. 12/30/19 Rx [Preparation H Cream] Pantoprazole [Protonix] 40 mg PO DAILY #30 tab 12/30/19 Rx Simvastatin [Zocor] 40 mg PO DAILY 12/30/19 12/30/19 History - History PMHx: CAD s/p CABG, HTN, HLD, prostate cancer, T2DM, hypothyroidism PSHx: CABG, cholecystectomy, cataracts FHx: brother and sisters all from heart disease Social: Never smoker. Denies etoh, drug use. Lives in apartment alone, gets assistance with cooking & cleaning. - Review of Systems General: denies: fever/chills, weight/appetite/sleep changes Eyes: denies: vision changes ENT: denies: nasal congestion Respiratory: denies: cough, congestion, shortness of breath Cardiovascular: reports: chest pain. denies: edema Gastrointestinal: reports: GI bleeding. denies: nausea, vomiting, abdominal pain Genitourinary: denies: dysuria, polyuria Skin: denies: rashes, lesions Neurological: denies: other (headache) - Vital signs BP: [160/68] HR: [75] RR: [18] Tmax: [97.7] Pox: [95]% on [RA] Wt: [81kg] - Physical Exam Constitutional: NAD, awake, alert and oriented HEENT: normocephalic and atraumatic, EOMI, grossly normal hearing Heart: RRR, no murmurs/rubs/gallops, pulses present, no edema, other (distant heart sounds) Lungs: CTAB, no respiratory distress, no rales/rhonchi, no wheezing Abdomen: soft, non-tender, bowel sounds present Musculoskeletal: ROM grossly normal Skin: other (approximately 1 cm dark brown maculopapular lesion on mid-back with stuck on appearance) Heme/Lymphatic: no purpura, no petechia Psychiatric: normal mood and affect FMR H&P: Results - Labs Result Diagrams: 12/29/19 14:47 12/30/19 04:00 Lab results: WBC 6.6 thou/uL (4.8-10.8) 12/29/19 14:47 Hgb 12.8 g/dL (14.0-18.0) L 12/29/19 14:47 Hct 39.4 % (42.0-52.0) L 12/29/19 14:47 MCV 94.7 fL (78.0-98.0) 12/29/19 14:47 Plt Count 214 thou/uL (130-400) 12/29/19 14:47 Neutrophils % 47.6 % (42.0-75.0) 12/29/19 14:47 Sodium 130 mmol/L (136-145) L 12/29/19 14:47 Potassium 5.0 mmol/L (3.5-5.1) 12/29/19 14:47 Chloride 100 mmol/L (98-107) 12/29/19 14:47 Carbon Dioxide 23 mmol/L (23-31) 12/29/19 14:47 BUN 10 mg/dL (8.4-25.7) 12/29/19 14:47 Creatinine 1.13 mg/dL (0.7-1.3) 12/29/19 14:47 Glucose 149 mg/dL (83-110) H 12/29/19 14:47 Calcium 9.2 mg/dL (7.8-10.44) 12/29/19 14:47 Total Bilirubin 0.3 mg/dL (0.2-1.2) 12/29/19 14:47 AST 14 U/L (5-34) 12/29/19 14:47 ALT 11 U/L (8-55) 12/29/19 14:47 Alkaline Phosphatase 60 U/L (40-110) 12/29/19 14:47 B-Natriuretic Peptide 73.5 pg/mL (0-100) 12/29/19 14:47 Serum Total Protein 6.9 g/dL (5.8-8.1) 12/29/19 14:47 Albumin 4.1 g/dL (3.4-4.8) 12/29/19 14:47 Urine Ketones Negative mg/dL (Negative) 12/29/19 16:20 Urine Blood Negative (Negative) 12/29/19 16:20 Urine Nitrite Negative (Negative) 12/29/19 16:20 Ur Leukocyte Esterase Negative Stephanie/uL (Negative) 12/29/19 16:20 - EKG Interpretation EKG: Sinus rhythm with old RBBB, slightly prolonged QRS, borderline QTc. No acute ST wave abnormalities. FMR H&P: A/P - Plan ACS r/o CAD s/p 4 vessel CABG Low suspicion for cardiac origin, more likely reflux vs MSK, but will observe given history of CAD s/p CABG. Initial EKG significant for RBBB, although appears to be chronic. Normal stress test and echo with EF 50-55% in 05/2019. -ASA given in ED -Trending troponins, negative x2 -Nitrostat PRN for chest pain -Sees Dr. Colon in outpatient. Will call in AM to see if he would like stress test. -NPO at midnight, holding beta carlos for possible stress test tomorrow. -f/u Mg, Phos Hypertension Mildly elevated, SBP 160s. -Will hold home carvedilol for possible stress test in AM -Continue home lisinopril -Monitor vitals Normocytic Anemia Appears chronic, stable per lab review. No recent iron studies. Colonoscopy on with polypectomy. -f/u iron studies Hyperlipidemia Last lipid panel 07/2019 with LDL 126, TG 81, HDL 40. -Statin previously stopped in outpatient setting Hypothyroidism Given chest pain, will check TSH. -Continue home levothyroxine Hyponatremia Appears chronic per lab review, will not aggressively correct. -f/u AM BMP -consider outpatient workup of chronic hyponatremia Type II DM Last HgbA1c 8.5% in 07/2019. -Hold home metformin, glipizide -Started on mild SSI with hypoglycemia precautions -f/u HgbA1c Colon Polyps Recent bleeding s/p colonoscopy with polypectomy on 12/22. Hgb stable at 12.8. -Will hold lovenox due to recent bleeding, use SCDs for DVT ppx. Prostate Cancer With para-aortic lymph nodes per recent PET scan. No active chemotherapy at this time. -Continue home tamsulosin Hx of PE CT negative for PE today. Not on chronic anticoagulation. -SCDs for prophylaxis -Will hold lovenox this evening due to bleeding s/p recent polypectomy Likely seborrheic keratosis Large, 1cm lesion on mid-back. -Consider outpatient f/u to confirm SK vs other pathology Diet: Heart healthy/consistent carb, NPO after midnight IVF: Saline lock PPx: Pepcid, SCDs Code: Full PCP: HARINDER Attending: James Dispo: Admit to tele for obs, possible stress test in AM with likely discharge to home FMR H&P: Upper Level - Pertinent history PCP: HARINDER HPI: 84YOM with a PMH notable for HTN, CAD s/p 4V CABG, hypothyroidism, HLD, h /o PE in 2011, & DMII who presented to the ED for evaluation for chest pain. Patient reports that he began having chest pain @ ~1100 this AM while sitting at home. No reported aggravating or alleviating factors. Described the pain as burning that he rated 6/10 at its worst. No radiation or associated N/V or SOB. Did endorse some dizziness. Did not take anything for relief but reports it resolved on its own after ~1 hour. No recent stress test. Sees Dr. Colon and states next appt is [facility] for April. History also notable to active prostate CA with possible lymphoma as well but patient is not receiving treatment at this time. Reports he has a c-scope ~ 6 days ago and has had some mild bleeding since but not passage of clots or lightheadedness or melanotic stools. Takes ASA QD but not on any chronic anticoagulation. ED course: 324 PO ASA, 20mg IV Pepcid, 25mg IV Benadryl, 125mg IV methylprednisolone, 1 inch nitro ointment See [employer] note for details of PMH. - Pertinent findings Labs/Imaging: EKG RBBB w/ rate of 73, QTc borderline @ 447 Trop 0.018 CXR: NAF CT dissection: No dissection or embolus noted REVIEW OF SYSTEMS: Gen: no fever, chills, or sweats or weight changes Neuro: no syncope, no weakness Eyes: no visual changes ENT: no sore throat, no congestion Resp: no cough, no SOB Card: + chest pain, no orthopnea or PND GI: no N/V/D/C, no abdominal pain, + hematochezia, no melena : no dysuria, no hematuria MSK: no myalgias, + arthritis Heme: on ASA QD Skin: no rash, no erythema Vitals: BP: 160/68 HR: 75 RR: 18 Tmax: 97.7F Pox: 95% on RA Wt: 81 kg PHYSICAL EXAMINATION: General: NAD, alert and oriented x3 HEENT: MMM; grossly normal vision with glasses & grossly normal hearing Neck: Supple. Full ROM. Heart/Cardiovascular System: distant heart sounds but RRR, no murmur, no edema Lungs/Respiratory System: No increased work of breathing. Room air. CTAB. Abdomen/Gastro-Intestinal System: soft w/ no abdominal tenderness, normal bowel sounds Extremities: Warm extremities. No cyanosis or edema noted. Neuro: No gross deficits appreciated. CN 2-12 grossly intact. Psychiatry: Awake, Alert and cooperative with exam. Skin: No lesions, rashes, or ulcers noted. Musculoskeletal: Full ROM throughout - Plan Date/Time: 12/29/191947 I, Phyllis Balbuena, have evaluated this patient and agree with findings/plan as outlined by exercise science internship resident. Pertinent changes/additions are listed here. A/P: #chest pain r/o ACS -Patient presented w/ chest pain not concerning for ACS based on reported history. EKG notable for RBBB which is chronic. Initial trop WNLs. Will continue to trend. Continue PRN nitrostat should chest pain return. Continue close monitoring on telemetry. -Recent FLD from July admission WNLs. Will add A1c if one not done since then as well as TSH, Mg & phos for risk stratification/ruling out other organic etiologies. -NPO @ midnight pending possible stress in the AM. Holding BBs as well for this. -Will likely consult cards in the AM for recs for stress or not since last stress was in 05/2019 & WNLs. #CAD s/p 4V CABG -Aware, holding ASA since patient was given 324mg in ER and reports mild post- polypectomy bleeding. -Otherwise, continue home meds. #Chronic hypoNa -Na 130 on presentation w/ correction to 131 in setting of mild hyperglycemia. Per chart review runs in low 130s chronically. Patient asymptomatic. Will continue to trend. -Needs outpatient workup. #Normocytic anemia -Hgb 12.8 on presentation. Per chart review has been anemic on & off since ~ 2011. Likely 2/2 chronic disease with iron deficiency in setting of recently removed colon polyps. Will obtain iron studies & check a B12 & folate. Will continue to trend. #Supected CKDII-III -Per chart review eGFR runs 50-60s chronically. 62 in presentation. Will renally dose meds PRN. #prostate CA -Aware, patient follows with Dr. Cook and Dr. Flores. Not currently undergoing tx. #stage II lymphoma -Patient denies but noted on PET scan and node Bx report from October of 2019. Follows w/ Dr. Flores. #HTN -Aware, will resume home meds w/ exception of BBs due to possible stress in the AM. #HLD -Will resume home meds. #BPH -Will resume home meds. #DMII -Holding home meds in the AM since NPO for possible stress. Hypoglycemia protocol & mild SSI & bedtime SSI. #GERD -Continue Pepcid while inpatient. #OA -Tylenol PRN #hypothyroidism -Resume home meds #colon polyps - s/p polypectomy on 12/22. Path + for tubullovillous adenoma. Already follows w/ ONC. Continue to monitor for recurrent bleeding. #h/o PE -Aware, per chart review was in 2011. Not on chronic anticoagulation. PCP: HARINDER Calender Worker Helper: Darlene Urologist: Joyce Oncologist: Mark ABx: None IVFs: SL VTE PPX: SCDS (post-polypectomy bleeding) GI PPX: pepcid Code status: FULL CODE Dispo: Admit to telemetry for ACS r/o to trend troponins with possible stress in AM. Addendum - Attending - Attending Attestation Date/Time: 12/30/19 [id number] I personally evaluated the patient and discussed the management with Dr. Moreno yesterday evening. I agree with the History, Examination, Assessment and Plan documented above with any addition or exceptions noted below.
[2019-12-29] MEDS ORDERED: Ondansetron ODT 4 MG TAB PO PRN (19:56)
[2019-12-29] MEDS ORDERED: Nitroglycerin 0.4 MG TAB (25 Tab Bottle) PO PRN (19:56)
[2019-12-29] MEDS ORDERED: Dextrose 50% Abboject 50 ML SYRINGE SLOW IVP PRN (19:56)
[2019-12-29] MEDS ORDERED: HumaLOG 300 UNITS/3 ML VIAL SC PRN ×2 (19:56)
[2019-12-29] MEDS ORDERED: Dextrose 5% in Water 1,000 ML IV PRN (19:56)
[2019-12-29 20:27] LABS: Magnesium 1.5 mg/dL (1.6-2.6); Phosphorus 2.7 mg/dL (2.3-4.7)
[2019-12-29] MEDS ORDERED: Enoxaparin Sodium 40 MG/0.4 ML SYRINGE SC SCH (21:00)
[2019-12-29 21:56] LABS: Hemoglobin A1c 8.4 % (4.0-6.0)
[2019-12-30 01:31] VITALS: BMI 27.1
[2019-12-30 04:52] LABS: Anion Gap 15 mmol/L (10-20); BUN (Urea Nitrogen) 16 mg/dL (8.4-25.7); Calc. Creatinine Clearance 42 mL/min (70-130); Calcium 9.3 mg/dL (7.8-10.44); Carbon Dioxide 19 mmol/L (23-31); Chloride 101 mmol/L (98-107); Estimated GFR-MDRD 47; Glucose 384 mg/dL (83-110); Iron 80 ug/dL (65-175); Iron Binding Capacity, Total 270 mcg/dL (261-462); Sodium 130 mmol/L (136-145)
[2019-12-30] MEDS ORDERED: Levothyroxine Sodium 50 MCG TAB PO SCH (06:00)
--- NOTE | 2019-12-30 06:04 | PDOC.FM ---
- Subjective Subjective: Pt was awake and pleasant to talk with this morning. He reports that yesterday at 0900 he was eating breakfast and began to have a pain in the back of his head and some weakness. He also noticed a burning sensation in his chest, located on the left with no radiation. He mentioned that he had a colonoscopy with polypectomy on 12/23/19 and would like to know the results. He had 2 days of minor rectal bleeding but none since. He denies any SOB, edema, N/V, diarrhea, fever, cough, syncope, presyncope, night sweats or weight loss/gain. - Objective Vital Signs & Weight: Vital Signs (12 hours) Temp Pulse Resp BP Pulse Ox 12/30/19 03:22 98.3 F 95 18 137/62 93 L 12/29/19 23:56 86 12/29/19 19:42 98.7 F 80 18 122/56 L 95 12/29/19 18:35 97.7 F 75 18 100/68 95 Weight Weight 78.608 kg I&O: 12/28/19 12/29/19 12/30/19 06:59 06:59 06:59 Intake Total 490 Output Total 850 Balance -360 Result Diagrams: 12/29/19 14:47 12/30/19 04:00 Additional Labs: Laboratory Tests 12/29/19 12/29/19 12/29/19 14:47 14:47 18:24 Phosphorus Magnesium Iron TIBC Ferritin Troponin I 0.018 0.018 B-Natriuretic Peptide 73.5 Vitamin B12 Folate TSH 3rd Generation 12/29/19 12/29/19 12/30/19 18:24 18:24 04:00 Phosphorus 2.7 Magnesium 1.5 L Iron TIBC Ferritin Troponin I B-Natriuretic Peptide Vitamin B12 Folate 12.90 TSH 3rd Generation 1.2124 12/30/19 12/30/19 12/30/19 04:00 04:00 04:00 Phosphorus Magnesium Iron 80 TIBC 270 Ferritin 84.26 Troponin I B-Natriuretic Peptide Vitamin B12 227 Folate TSH 3rd Generation Phys Exam - Physical Examination Constitutional: NAD HEENT: moist MMs, sclera anicteric Neck: no JVD, supple Respiratory: no wheezing, clear to auscultation bilateral Cardiovascular: RRR, no significant murmur Gastrointestinal: soft, non-tender Musculoskeletal: no edema, pulses present Neurological: non-focal, moves all 4 limbs Psychiatric: normal affect Skin: no rash, normal turgor Dx/Plan - Plan Plan: ACS r/o CAD s/p 4 vessel CABG -Low suspicion for cardiac origin, more likely reflux vs MSK, but will observe given history of CAD s/p CABG. Initial EKG significant for RBBB, although appears to be chronic. Normal stress test and echo with EF 50-55% in 05/2019. -Heart score 5 -ASA given in ED -Trending troponins, negative x2 -Nitrostat PRN for chest pain -Sees Dr. Colon in outpatient. Will call to see if he would like to be consulted -NPO at midnight, holding beta carlos for possible stress test tomorrow. -troponin neg x2, BNP normal JUDY - Creatinine is 1.42 today, increased from 1.13 yesterday, BUN also increased from 10 to 16 -likely due to CTA with contrast yesterday, has a history of reaction to contrast, was given benadryl and methylpred in ED - will continue to monitor, avoid nephrotoxic medications Hypertension -Mildly elevated in ED, SBP 160s, currently stable -carvedilol held for possible stress test in AM, will call Dr Colon -Continue home lisinopril -Monitor vitals Normocytic Anemia -Appears chronic, stable per lab review. -iron studies, ferritin, B12 and folate all normal Hyperlipidemia -Last lipid panel 07/2019 with LDL 126, TG 81, HDL 40. -Statin previously stopped in outpatient setting Hypothyroidism -TSH normal -Continue home levothyroxine Hyponatremia -Appears chronic per lab review -consider outpatient workup of chronic hyponatremia GERD -Continue Pepcid while inpatient Type II DM -HgbA1c 8.4% -Hold home metformin, glipizide -Started on mild SSI with hypoglycemia precautions -glucose checks as per [facility] Colon Polyps -s/p colonoscopy with polypectomy on 12/22. -prophylactic lovenox was held because of questionable rectal bleeding, use SCDs for DVT ppx. Prostate Cancer -With para-aortic lymph nodes per recent PET scan. No active chemotherapy at this time. -patient sees onc-Dr. Flores -Continue home tamsulosin Hx of PE -CTA negative for PE. Not on chronic anticoagulation. -SCDs for prophylaxis -prophylactic lovenox was held because of questionable rectal bleeding Likely seborrheic keratosis Large, 1cm lesion on mid-back. -Consider outpatient f/u to confirm SK vs other pathology Diet: Heart healthy/consistent carb, NPO after midnight IVF: Saline lock PPx: Pepcid, SCDs Code: Full PCP: HARINDER Attending: James Dispo: Admit to tele for obs, possible stress test in AM with likely discharge to home Addendum - Attending - Attending Attestation Date/Time: 12/30/19 1206 I personally evaluated the patient and discussed the management with Dr. Sheth. I agree with the History, Examination, Assessment and Plan documented above with any addition or exceptions noted below. Patient stable. Pain complaint c/w gastric nature type pain. Ruled out for ACS and had normal stress test 7 months ago. Stable for discharge with follow up with his air pollution engineer. Needs a little better glycemic control but would not recommend goal of A1c of 7 due to his age and increased risk for adverse events with tight glycemic control.
[2019-12-30] MEDS ORDERED: Tamsulosin HCl 0.4 MG CAP PO SCH (09:00)
[2019-12-30] MEDS ORDERED: Lisinopril 10 MG TAB PO SCH (09:00)
[2019-12-30] MEDS ORDERED: Polyethylene Glycol 3350 17 GM Packet PO SCH (09:00)
[2019-12-30] MEDS ORDERED: Enoxaparin Sodium 40 MG/0.4 ML SYRINGE SC SCH (09:00)
[2019-12-30 12:06] VITALS: BP 169/83; TEMP 97.5
--- NOTE | 2019-12-30 21:04 | DIS ---
DATE OF ADMISSION: 12/29/2019 DATE OF DISCHARGE: 12/30/2019 RESIDENT: Alesia Sheth MD ADMITTING ATTENDING: Geovany Benson MD DISCHARGE ATTENDING: Geovany Benson MD CONSULTS: None. PROCEDURES: None. PRIMARY DIAGNOSIS: GERD SECONDARY DIAGNOSES: Acute kidney injury, hypertension, anemia, hyperlipidemia, hypothyroidism, hyponatremia, gastroesophageal reflux disease, diabetes. DISCHARGE MEDICATIONS: Pantoprazole 40 mg p.o. daily, Preparation-H cream, aspirin 81 mg p.o. daily, carvedilol 12.5 mg p.o. b.i.d., glipizide 5 mg p.o. b.i.d., levothyroxine 50 mcg tablet p.o. daily, lisinopril 10 mg p.o. daily, metformin 1000 mg p.o. b.i.d. Discontinued medications: None. HOSPITAL COURSE: The patient is an 84-year-old male with past medical history of coronary artery disease, CABG, type 2 diabetes, hypertension, hyperlipidemia, hypothyroidism, and prostate cancer, who presented to the ED with pain in the back of his head, weakness, and a burning sensation in his chest. He describes the pain in his chest as located on the left, mild pain, felt like burning. it started at rest and resolved on its own. Due to his past medical history significant for cardiovascular disease, he was admitted to rule out ACS. Laboratory evaluation was done and it was found that his sodium was 130. This seems to be something that is chronic and can be worked up outpatient. His troponins were measured and found to be 0.018 x2. His BNP was 73.5. His hemoglobin was 12.8. Further studies were done and it was found that his iron studies, B12 and folate were all normal. Due to his history of hypothyroidism, his TSH was measured and found to be 1.2. His hemoglobin A1c was 8.4 and his blood sugars measured in the hospital ranged from 184 to 384. Chest x-ray was done and found to be stable as compared to previous exam. CTA of the chest was done to look for aortic dissection and it was found to be stable and no PE was noted. However, some enlargement of paraaortic lymph nodes were noted. This seems to be consistent with previous workup including a biopsy. PHYSICAL EXAMINATION: Found to be noncontributory. After accessing his labs, imaging and physical exam, we felt his most likely diagnosis was GI related given his history of GERD. He had a stress test and echo done in May of 2019 and found no ischemia and his ejection fraction was measured to be 50%-55%. He sees Dr. Colon, his continuous drier helper, as outpatient. He had an appointment scheduled for April. He was encouraged to keep his appointment with Dr. Colon. If he continues to have chest pain, he can call Dr. Colon's office or come back to the emergency department. We added a proton pump inhibitor to his medication list. It was recommended for him to follow up as outpatient with his PCP to discuss glycemic control. DISPOSITION: Stable. DISCHARGE INSTRUCTIONS: Location: Home. Diet: Heart healthy. Activity: Ad kayla. Followup: Follow up with PCP and continuous drier helper, Dr. Colon. Job ID: [id number]
--- NOTE | 2020-01-05 16:20 | EKG ---
Test Reason : Blood Pressure : / mmHG Vent. Rate : 073 BPM Atrial Rate : 073 BPM P-R Int : 150 ms QRS Dur : 120 ms QT Int : 406 ms P-R-T Axes : -07 -53 -10 degrees QTc Int : 447 ms Sinus rhythm with Premature supraventricular complexes Right bundle branch block Left anterior fascicular block Bifascicular block Minimal voltage criteria for LVH, may be normal variant Abnormal ECG Confirmed by SHAHEEN EDWARDS, MARTA Garcia ([id number]), proposal editor MERCEDES LONGO ([id number]) on 01/05/2020 4:19:21 PM Referred By: Confirmed By:MARTA JAMISON MD
== END 2019-12-30 14:04 | disposition home or self-care (01) ==
LOC: ERS 13:59 → 2NO 18:00
PROVIDERS: ADMIT Family Medicine; ATTEND Student in an Organized Health Care Education/Training Program
DX: K21.9 Gastro-esophageal reflux disease without esophagitis (principal); N17.9 Acute kidney failure, unspecified; I10 Essential (primary) hypertension; D64.9 Anemia, unspecified; E78.5 Hyperlipidemia, unspecified; E03.9 Hypothyroidism, unspecified; E87.1 Hypo-osmolality and hyponatremia; E11.65 Type 2 diabetes mellitus with hyperglycemia; I25.10 Atherosclerotic heart disease of native coronary artery without angina pectoris; C61 Malignant neoplasm of prostate; I45.10 Unspecified right bundle-branch block; C85.90 Non-Hodgkin lymphoma, unspecified, unspecified site; N40.0 Benign prostatic hyperplasia without lower urinary tract symptoms; M19.90 Unspecified osteoarthritis, unspecified site; E78.00 Pure hypercholesterolemia, unspecified; F32.9 Major depressive disorder, single episode, unspecified; Z86.010 Personal history of colon polyps; Z79.82 Long term (current) use of aspirin; Z79.84 Long term (current) use of oral hypoglycemic drugs; Z79.899 Other long term (current) drug therapy; Z91.041 Radiographic dye allergy status; Z95.1 Presence of aortocoronary bypass graft
CPT/HCPCS: 71045; 71275; 72191; 74175; 80048; 81003; 82607; 82728; 82746; 82962 ×2; 83036; 83540; 83550; 83735; 83880; 84100; 84484 ×2; 93005; 96374; 96375; 99285; G0378 ×3; 36415; 36416; 80053; 84443; 85025; J1200; J2930; Q9967; S0028

== ENCOUNTER 2020-12-06 16:46 | Emergency (ER) | payer MEDICARE, OTHER ==
[2020-12-06 17:23] LABS: #Basophils 0.1 thou/uL (0.0-0.2); #Eosinphils 0.3 thou/uL (0.0-0.7); #Lymphocytes 3.8 thou/uL (1.20-3.40); #Monocytes 0.7 thou/uL (0.11-0.59); #Neutrophils 3.2 thou/uL (1.40-6.50); %Basophils 1.1 % (0.0-1.0); %Eosinophils 3.9 % (0.0-10.0); %Lymphocytes 47.4 % (21.0-51.0); %Monocytes 8.4 % (0.0-10.0); %Neutrophils 39.1 % (42.0-75.0); Hemoglobin 12.9 g/dL (14.0-18.0); Mean Corpuscular HGB CONC 33.8 g/dL (32.0-36.0); Mean Corpuscular Hemoglobin 30.8 pg (27.0-31.0); Mean Corpuscular Volume 91.2 fL (78.0-98.0); Mean Platelet Volume 7.8 fL (7.4-10.4); Platelet Count 319 thou/uL (130-400); RBC Distribution Width 13.5 % (11.5-14.5); Red Blood Cell (RBC) Count 4.18 mill/uL (4.70-6.10); White Blood Cell (WBC) Count 8.1 thou/uL (4.8-10.8)
[2020-12-06 17:54] LABS: ALT (SGPT) 37 U/L (8-55); AST (SGOT) 34 U/L (5-34); Albumin 4.3 g/dL (3.4-4.8); Alkaline Phosphatase 79 U/L (40-110); Anion Gap 17 mmol/L (10-20); BUN (Urea Nitrogen) 14 mg/dL (8.4-25.7); Bilirubin, Total 0.2 mg/dL (0.2-1.2); CK (CPK) 53 U/L (30-200); Calc. Creatinine Clearance 0 mL/min (70-130); Carbon Dioxide 19 mmol/L (23-31); Chloride 96 mmol/L (98-107); Globulin 3.9 g/dL (2.4-3.5); Glucose 178 mg/dL (83-110); Protein, Total 8.2 g/dL (5.8-8.1); Sodium 127 mmol/L (136-145)
[2020-12-06 18:23] LABS: Bilirubin Negative (Negative); Blood, Urine Negative (Negative); Clarity Clear (Clear); Glucose, Urine (Dipstick) 300 mg/dL (Negative); Ketone, Urine Negative (Negative); Leukocyte Negative Leu/uL (Negative); Nitrite Negative (Negative); Protein, Urine (Dipstick) 20 mg/dL (Neg-Trace); Specific Gravity, Urine 1.008 (1.002-1.036); Urobilinogen Normal mg/dL (Less than 2); pH, Urine 7.5 (5.0-9.0)
[2020-12-06] MEDS ORDERED: diphenhydrAMINE 50 MG/ML VIAL ONE (18:54)
[2020-12-06] MEDS ORDERED: Famotidine/PF 20 mg/2ml Vial ONE (18:54)
[2020-12-06] MEDS ORDERED: methylPREDNISolone Sod Succ/PF 125 MG/2 ML VIAL ONE (18:54)
[2020-12-06 21:53] LABS: Lactic Acid 2.3 mmol/L (0.5-2.2)
== END 2020-12-06 23:12 | disposition home or self-care (01) ==
LOC: ERS 16:46
DX: R07.81 Pleurodynia (principal); I25.10 Atherosclerotic heart disease of native coronary artery without angina pectoris; E11.9 Type 2 diabetes mellitus without complications; I10 Essential (primary) hypertension; K21.9 Gastro-esophageal reflux disease without esophagitis; E78.00 Pure hypercholesterolemia, unspecified; Z79.82 Long term (current) use of aspirin; Z79.899 Other long term (current) drug therapy; Z79.84 Long term (current) use of oral hypoglycemic drugs
CPT/HCPCS: 36415; 71045; 71275; 74174; 80053; 81003; 82550; 83605; 84484; 85025; 93005; 96374; 96375; J1200; J2930; Q9967; S0028

== ENCOUNTER 2020-12-13 19:57 | Inpatient (IN) | payer MEDICARE, OTHER ==
[2020-12-13] MEDS ORDERED: Lorazepam 2 MG/ML VIAL ONE (20:41)
[2020-12-13 20:43] LABS: #Basophils 0.1 thou/uL (0.0-0.2); #Eosinphils 0.3 thou/uL (0.0-0.7); #Lymphocytes 2.5 thou/uL (1.20-3.40); #Monocytes 0.7 thou/uL (0.11-0.59); #Neutrophils 4.7 thou/uL (1.40-6.50); %Basophils 1.7 % (0.0-1.0); %Eosinophils 3.2 % (0.0-10.0); %Lymphocytes 30.5 % (21.0-51.0); %Monocytes 7.9 % (0.0-10.0); %Neutrophils 56.7 % (42.0-75.0); Hemoglobin 12.4 g/dL (14.0-18.0); Mean Corpuscular HGB CONC 34.1 g/dL (32.0-36.0); Mean Corpuscular Hemoglobin 31.4 pg (27.0-31.0); Mean Platelet Volume 7.4 fL (7.4-10.4); Platelet Count 310 thou/uL (130-400); RBC Distribution Width 13.7 % (11.5-14.5); Red Blood Cell (RBC) Count 3.97 mill/uL (4.70-6.10); White Blood Cell (WBC) Count 8.2 thou/uL (4.8-10.8)
[2020-12-13 20:48] LABS: ALT (SGPT) 27 U/L (8-55); AST (SGOT) 27 U/L (5-34); Albumin 4.1 g/dL (3.4-4.8); Alkaline Phosphatase 73 U/L (40-110); Anion Gap 15 mmol/L (10-20); BUN (Urea Nitrogen) 11 mg/dL (8.4-25.7); Bilirubin, Total 0.3 mg/dL (0.2-1.2); CK (CPK) 41 U/L (30-200); Calc. Creatinine Clearance 0 mL/min (70-130); Calcium 9.2 mg/dL (7.8-10.44); Carbon Dioxide 20 mmol/L (23-31); Chloride 94 mmol/L (98-107); Globulin 3.2 g/dL (2.4-3.5); Glucose 122 mg/dL (83-110); Magnesium 1.1 mg/dL (1.6-2.6); Potassium 4.7 mmol/L (3.5-5.1); Protein, Total 7.3 g/dL (5.8-8.1); Sodium 124 mmol/L (136-145)
[2020-12-13 20:48] LABS: Bilirubin Negative (Negative); Blood, Urine Negative (Negative); Clarity Clear (Clear); Glucose, Urine (Dipstick) Normal (Negative); Ketone, Urine Negative (Negative); Leukocyte Negative Leu/uL (Negative); Nitrite Negative (Negative); Protein, Urine (Dipstick) Negative (Neg-Trace); Specific Gravity, Urine 1.005 (1.002-1.036); Urobilinogen Normal mg/dL (Less than 2)
[2020-12-13] MEDS ORDERED: Aspirin 325 MG TAB ONE (21:28)
[2020-12-13] MEDS ORDERED: Magnesium Sulfate 4 GM in Sodium Chloride 0.9% 250 ML 250 ML IVPB SCH (21:45)
[2020-12-13] MEDS ORDERED: Cosyntropin 250 MCG VIAL SLOW IVP SCH (21:45)
[2020-12-13] MEDS ORDERED: HYDROcodone/Acetaminophen 5/325 mg Tablet PO PRN (21:52)
[2020-12-13] MEDS ORDERED: Ondansetron ODT 4 MG TAB PO PRN (21:52)
[2020-12-13] MEDS ORDERED: Ondansetron PF 4 MG/2 ML Vial IVP PRN (21:52)
[2020-12-13] MEDS ORDERED: Acetaminophen 325 MG TAB PO PRN (21:52)
[2020-12-13] MEDS ORDERED: Dextrose 50% Abboject 50 ML SYRINGE SLOW IVP PRN (21:52)
[2020-12-13] MEDS ORDERED: Dextrose 5% in Water 1,000 ML IV PRN (21:52)
[2020-12-13] MEDS ORDERED: HumaLOG 300 UNITS/3 ML VIAL SC PRN ×2 (21:52)
[2020-12-13] MEDS ORDERED: Magnesium Sulfate 2 GM in Sodium Chloride 0.9% 100 ML IVPB SCH (22:15)
[2020-12-13 22:46] LABS: Anion Gap 11 mmol/L (10-20); BUN (Urea Nitrogen) 10 mg/dL (8.4-25.7); Calc. Creatinine Clearance 0 mL/min (70-130); Calcium 8.2 mg/dL (7.8-10.44); Carbon Dioxide 21 mmol/L (23-31); Chloride 100 mmol/L (98-107); Glucose 115 mg/dL (83-110); Potassium 4.5 mmol/L (3.5-5.1); Sodium 127 mmol/L (136-145)
[2020-12-14] MEDS: Magnesium 2 GM/50 ML 2 GM in Premix Bag 1 BAG IVPB SCH ×2 (00:15→01:03)
[2020-12-14 00:16] VITALS: BMI 27.1
[2020-12-14] MEDS ORDERED: hydrALAZINE 20 MG/ML VIAL SLOW IVP PRN (03:02)
[2020-12-14] MEDS ORDERED: Labetalol HCl 100 MG/20 ML VIAL SLOW IVP PRN (03:02)
[2020-12-14 06:37] LABS: #Eosinphils 0.3 thou/uL (0.0-0.7); #Lymphocytes 1.9 thou/uL (1.20-3.40); #Monocytes 0.5 thou/uL (0.11-0.59); #Neutrophils 3.1 thou/uL (1.40-6.50); %Basophils 0.8 % (0.0-1.0); %Eosinophils 4.5 % (0.0-10.0); %Lymphocytes 32.4 % (21.0-51.0); %Monocytes 9.2 % (0.0-10.0); %Neutrophils 53.1 % (42.0-75.0); Hemoglobin 11.7 g/dL (14.0-18.0); Mean Corpuscular HGB CONC 32.7 g/dL (32.0-36.0); Mean Corpuscular Hemoglobin 30.4 pg (27.0-31.0); Mean Corpuscular Volume 92.9 fL (78.0-98.0); Mean Platelet Volume 7.3 fL (7.4-10.4); Platelet Count 312 thou/uL (130-400); RBC Distribution Width 13.5 % (11.5-14.5); Red Blood Cell (RBC) Count 3.84 mill/uL (4.70-6.10); White Blood Cell (WBC) Count 5.9 thou/uL (4.8-10.8)
[2020-12-14] MEDS ORDERED: Enoxaparin Sodium 40 MG/0.4 ML SYRINGE SC SCH (09:00)
[2020-12-14 12:02] LABS: SARS-CoV-2 PCR by NAA Not Detected (NotDetected)
[2020-12-14] MEDS: glipiZIDE 5 MG TAB PO SCH (18:35)
[2020-12-14 19:29] LABS: Potassium, Urine 14.2 mmol/L
[2020-12-14] MEDS: Carvedilol 6.25 MG TAB PO SCH (20:55)
[2020-12-14] MEDS ORDERED: Atorvastatin Calcium 20 MG TAB PO SCH (21:00)
[2020-12-14] MEDS ORDERED: Non-Formulary Item 1 EACH (Carvedilol [Coreg] 12.5 MG Tab) PO SCH (21:00)
[2020-12-15 07:21] VITALS: TEMP 97.9
[2020-12-15 07:40] LABS: Anion Gap 13 mmol/L (10-20); BUN (Urea Nitrogen) 10 mg/dL (8.4-25.7); Calc. Creatinine Clearance 58 mL/min (70-130); Calcium 8.9 mg/dL (7.8-10.44); Carbon Dioxide 20 mmol/L (23-31); Chloride 102 mmol/L (98-107); Glucose 136 mg/dL (83-110); Potassium 4.4 mmol/L (3.5-5.1); Sodium 131 mmol/L (136-145)
[2020-12-15] MEDS ORDERED: Levothyroxine Sodium 50 MCG TAB PO SCH (09:00)
[2020-12-15] MEDS ORDERED: Simvastatin 40 MG TAB PO SCH (09:00)
[2020-12-15] MEDS ORDERED: Aspirin 81 mg Enteric Coated Tablet PO SCH (09:00)
[2020-12-15] MEDS ORDERED: Tamsulosin HCl 0.4 MG CAP PO SCH (09:00)
[2020-12-15] MEDS ORDERED: Lisinopril 10 MG TAB PO SCH (09:00)
[2020-12-15] MEDS: glipiZIDE 5 MG TAB PO SCH (09:23)
[2020-12-15] MEDS: Carvedilol 6.25 MG TAB PO SCH (09:23)
[2020-12-15 09:25] VITALS: BP 149/73
== END 2020-12-15 12:25 | disposition home or self-care (01) | DRG 641 ==
LOC: ERS 19:57 → T4-B 21:28
PROVIDERS: ADMIT Student in an Organized Health Care Education/Training Program; ATTEND Internal Medicine
DX: E87.1 Hypo-osmolality and hyponatremia (principal); Z20.822 Contact with and (suspected) exposure to COVID-19; E11.9 Type 2 diabetes mellitus without complications; I10 Essential (primary) hypertension; I25.10 Atherosclerotic heart disease of native coronary artery without angina pectoris; K21.9 Gastro-esophageal reflux disease without esophagitis; E78.00 Pure hypercholesterolemia, unspecified; E78.5 Hyperlipidemia, unspecified; F32.9 Major depressive disorder, single episode, unspecified; R42 Dizziness and giddiness; I16.0 Hypertensive urgency; Z91.041 Radiographic dye allergy status; Z90.49 Acquired absence of other specified parts of digestive tract; Z95.1 Presence of aortocoronary bypass graft; Z79.899 Other long term (current) drug therapy; Z79.890 Hormone replacement therapy; Z79.84 Long term (current) use of oral hypoglycemic drugs
CPT/HCPCS: 36415; 36416; 70450; 71045; 80048; 80053; 81003; 82436; 82533; 82550; 83735; 83880; 83930; 83935; 84133; 84300; 84443; 84484; 85025; 93005; 93306; 96374; J1815; J2060; J3475; U0003; U0005

== ENCOUNTER 2021-03-11 11:56 | Inpatient (IN) | payer MEDICARE, OTHER ==
[2021-03-11 12:36] LABS: #Eosinphils 0.1 thou/uL (0.0-0.7); #Lymphocytes 1.8 thou/uL (1.20-3.40); #Monocytes 0.3 thou/uL (0.11-0.59); %Basophils 0.7 % (0.0-1.0); %Eosinophils 2.1 % (0.0-10.0); %Monocytes 5.5 % (0.0-10.0); %Neutrophils 57.8 % (42.0-75.0); Hemoglobin 9.4 g/dL (14.0-18.0); Mean Corpuscular HGB CONC 33.5 g/dL (32.0-36.0); Mean Corpuscular Hemoglobin 29.7 pg (27.0-31.0); Mean Corpuscular Volume 88.5 fL (78.0-98.0); Mean Platelet Volume 7.7 fL (7.4-10.4); Platelet Count 293 thou/uL (130-400); RBC Distribution Width 16.2 % (11.5-14.5); Red Blood Cell (RBC) Count 3.17 mill/uL (4.70-6.10); White Blood Cell (WBC) Count 5.2 thou/uL (4.8-10.8)
[2021-03-11 13:02] LABS: ALT (SGPT) 7 U/L (8-55); AST (SGOT) 22 U/L (5-34); Albumin 3.5 g/dL (3.4-4.8); Alkaline Phosphatase 67 U/L (40-110); Anion Gap 18 mmol/L (10-20); BUN (Urea Nitrogen) 44 mg/dL (8.4-25.7); Bilirubin, Total 0.3 mg/dL (0.2-1.2); Calc. Creatinine Clearance 0 mL/min (70-130); Calcium 8.8 mg/dL (7.8-10.44); Carbon Dioxide 11 mmol/L (23-31); Chloride 109 mmol/L (98-107); Globulin 2.5 g/dL (2.4-3.5); Glucose 110 mg/dL (83-110); Lipase 32 U/L (8-78); Potassium 5.5 mmol/L (3.5-5.1); Sodium 132 mmol/L (136-145)
[2021-03-11] MEDS ORDERED: cefTRIAXone\\ROCEPHIN 2 GM VIAL ONE (15:44)
[2021-03-11] MEDS ORDERED: Azithromycin 500 MG VIAL ONE (15:44)
[2021-03-11] MEDS ORDERED: Aspirin Chewable 81 MG TAB ONE (15:44)
[2021-03-11] MEDS ORDERED: HYDROcodone/Acetaminophen 5/325 mg Tablet PO PRN ×2 (16:22)
[2021-03-11] MEDS ORDERED: Senokot S 8.6-50 MG TAB PO PRN (16:22)
[2021-03-11] MEDS ORDERED: Acetaminophen 325 MG TAB PO PRN (16:22)
[2021-03-11] MEDS ORDERED: HumaLOG 300 UNITS/3 ML VIAL SC PRN (16:25)
[2021-03-11] MEDS ORDERED: Dextrose 5% in Water 1,000 ML IV PRN (16:25)
[2021-03-11] MEDS ORDERED: Dextrose 50% Abboject 50 ML SYRINGE SLOW IVP PRN (16:25)
[2021-03-11] MEDS ORDERED: Sodium Chloride 0.9% 1,000 ML IV SCH (16:30)
[2021-03-11 17:47] LABS: Bilirubin Negative (Negative); Blood, Urine Negative (Negative); Clarity Clear (Clear); Glucose, Urine (Dipstick) Normal (Negative); Ketone, Urine Trace mg/dL (Negative); Leukocyte Negative Leu/uL (Negative); Nitrite Negative (Negative); Protein, Urine (Dipstick) 20 mg/dL (Neg-Trace); Specific Gravity, Urine 1.017 (1.002-1.036); Urobilinogen Normal mg/dL (Less than 2)
[2021-03-11 19:18] LABS: Lactic Acid 2.7 mmol/L (0.5-2.2)
[2021-03-11 19:23] LABS: Anion Gap 17 mmol/L (10-20); BUN (Urea Nitrogen) 38 mg/dL (8.4-25.7); Calc. Creatinine Clearance 0 mL/min (70-130); Calcium 8.6 mg/dL (7.8-10.44); Carbon Dioxide 13 mmol/L (23-31); Chloride 111 mmol/L (98-107); Glucose 84 mg/dL (83-110); Potassium 5.6 mmol/L (3.5-5.1); Sodium 135 mmol/L (136-145)
[2021-03-11 20:07] VITALS: BMI 24.1
[2021-03-11] MEDS ORDERED: Heparin 5,000 UNITS/ML VIAL SC SCH (21:00)
[2021-03-11] MEDS: Heparin 5,000 UNITS/ML VIAL SC SCH (21:17)
[2021-03-12 06:13] LABS: Band 2 % (5-11); Burr Cells SLIGHT = 2-5 cells (100X) (0-1/hpf); Elliptocytes SLIGHT = 2-5 cells (100X) (0-1/hpf); Eosinophils 1 % (0-10); Hemoglobin 9.2 g/dL (14.0-18.0); Lymphocytes 29 % (21-51); MDiff Complete? YES; Mean Corpuscular HGB CONC 33.9 g/dL (32.0-36.0); Mean Corpuscular Volume 88.7 fL (78.0-98.0); Mean Platelet Volume 8.3 fL (7.4-10.4); Monocytes 5 % (0-10); Myelocyte 1 % (0-0); Neutrophil 62 % (42-75); Platelet Count 236 thou/uL (130-400); Platelet Morphology Comment Appears Adequate; Polychromasia SLIGHT = 2-3 cells (100X) (0-2/hpf); RBC Distribution Width 16.2 % (11.5-14.5); Red Blood Cell (RBC) Count 3.06 mill/uL (4.70-6.10); White Blood Cell (WBC) Count 4.7 thou/uL (4.8-10.8)
[2021-03-12] MEDS: Heparin 5,000 UNITS/ML VIAL SC SCH ×2 (09:25→21:01)
[2021-03-12] MEDS: Famotidine 20 MG TAB PO SCH (09:25)
[2021-03-12 14:38] LABS: SARS-CoV-2 NAA Rapid Test Not Detected (NotDetected)
[2021-03-13 08:43] LABS: Albumin 3.7 g/dL (3.4-4.8); Anion Gap 16 mmol/L (10-20); BUN (Urea Nitrogen) 14 mg/dL (8.4-25.7); BUN/Creatinine Ratio 15.91; Calc. Creatinine Clearance 56 mL/min (70-130); Calcium 9.7 mg/dL (7.8-10.44); Carbon Dioxide 17 mmol/L (23-31); Chloride 108 mmol/L (98-107); Glucose 125 mg/dL (83-110); Phosphorus 2.5 mg/dL (2.3-4.7); Potassium 4.3 mmol/L (3.5-5.1); Sodium 137 mmol/L (136-145)
[2021-03-13] MEDS: Heparin 5,000 UNITS/ML VIAL SC SCH ×2 (08:55→20:18)
[2021-03-13] MEDS: Famotidine 20 MG TAB PO SCH (08:55)
[2021-03-13 09:11] LABS: Anisocytosis MODERATE=16-30 cells (100X) (0-5/hpf); Band 3 % (5-11); Elliptocytes SLIGHT = 2-5 cells (100X) (0-1/hpf); Eosinophils 1 % (0-10); Hemoglobin 10.6 g/dL (14.0-18.0); Lymphocytes 41 % (21-51); MDiff Complete? YES; Mean Corpuscular HGB CONC 32.8 g/dL (32.0-36.0); Mean Corpuscular Hemoglobin 28.8 pg (27.0-31.0); Mean Corpuscular Volume 87.8 fL (78.0-98.0); Mean Platelet Volume 9.2 fL (7.4-10.4); Monocytes 5 % (0-10); Neutrophil 50 % (42-75); Platelet Count 266 thou/uL (130-400); Platelet Morphology Comment Appears Adequate; Poikilocytosis SLIGHT = 6-15 cells (100X) (0-5/hpf); RBC Distribution Width 16.4 % (11.5-14.5); Red Blood Cell (RBC) Count 3.69 mill/uL (4.70-6.10); Tear Drops SLIGHT = 2-5 cells (100X) (0-1/hpf); White Blood Cell (WBC) Count 6.2 thou/uL (4.8-10.8)
[2021-03-14 08:11] VITALS: BP 125/58; TEMP 98.1
[2021-03-14] MEDS: Heparin 5,000 UNITS/ML VIAL SC SCH (08:18)
[2021-03-14] MEDS: Famotidine 20 MG TAB PO SCH (08:18)
== END 2021-03-14 14:25 | disposition home or self-care (01) | DRG 683 ==
LOC: ERS 11:56 → 2NO 17:00 → ONC 03-12 15:33
PROVIDERS: ADMIT Internal Medicine; ATTEND Internal Medicine
DX: N17.9 Acute kidney failure, unspecified (principal); C85.96 Non-Hodgkin lymphoma, unspecified, intrapelvic lymph nodes; E87.5 Hyperkalemia; E03.9 Hypothyroidism, unspecified; I10 Essential (primary) hypertension; E11.9 Type 2 diabetes mellitus without complications; K21.9 Gastro-esophageal reflux disease without esophagitis; E78.5 Hyperlipidemia, unspecified; M54.5 Low back pain; D64.9 Anemia, unspecified; Z20.822 Contact with and (suspected) exposure to COVID-19; I25.10 Atherosclerotic heart disease of native coronary artery without angina pectoris; Z95.1 Presence of aortocoronary bypass graft; Z91.041 Radiographic dye allergy status; Z79.84 Long term (current) use of oral hypoglycemic drugs; Z79.82 Long term (current) use of aspirin; Z79.899 Other long term (current) drug therapy; Z90.49 Acquired absence of other specified parts of digestive tract
CPT/HCPCS: 36415; 36416; 71045; 74176; 80053; 80069; 81003; 82274; 82550; 83605; 83690; 83880; 84443; 84484; 85025; 87040; 87086; 93005; 96365; 96366; 96375; J0456; J0696; J1644; J7050; U0002; U0003; U0005

== ENCOUNTER 2021-03-24 13:47 | Inpatient (IN) | payer MEDICARE, OTHER ==
[2021-03-24 15:14] LABS: #Eosinphils 0.1 thou/uL (0.0-0.7); #Lymphocytes 1.2 thou/uL (1.20-3.40); #Monocytes 0.3 thou/uL (0.11-0.59); #Neutrophils 3.7 thou/uL (1.40-6.50); %Eosinophils 1.6 % (0.0-10.0); %Lymphocytes 23.4 % (21.0-51.0); %Monocytes 5.6 % (0.0-10.0); %Neutrophils 69.4 % (42.0-75.0); Hemoglobin 9.2 g/dL (14.0-18.0); Mean Corpuscular HGB CONC 33.7 g/dL (32.0-36.0); Mean Corpuscular Hemoglobin 30.6 pg (27.0-31.0); Mean Corpuscular Volume 90.6 fL (78.0-98.0); Mean Platelet Volume 7.3 fL (7.4-10.4); Platelet Count 353 thou/uL (130-400); RBC Distribution Width 17.3 % (11.5-14.5); White Blood Cell (WBC) Count 5.3 thou/uL (4.8-10.8)
[2021-03-24 15:16] LABS: ALT (SGPT) 9 U/L (8-55); AST (SGOT) 26 U/L (5-34); Albumin 2.8 g/dL (3.4-4.8); Alkaline Phosphatase 78 U/L (40-110); Anion Gap 18 mmol/L (10-20); BUN (Urea Nitrogen) 24 mg/dL (8.4-25.7); Bilirubin, Total 0.3 mg/dL (0.2-1.2); Calc. Creatinine Clearance 0 mL/min (70-130); Calcium 8.7 mg/dL (7.8-10.44); Carbon Dioxide 16 mmol/L (23-31); Chloride 104 mmol/L (98-107); Globulin 2.8 g/dL (2.4-3.5); Glucose 108 mg/dL (83-110); Potassium 4.6 mmol/L (3.5-5.1); Protein, Total 5.6 g/dL (5.8-8.1); Sodium 133 mmol/L (136-145)
[2021-03-24] MEDS ORDERED: Acetaminophen 500 MG TAB ONE (15:28)
[2021-03-24 16:20] LABS: Bacteria/HPF None Seen HPF (None Seen); Bilirubin Negative (Negative); Blood, Urine Negative (Negative); Clarity Clear (Clear); Glucose, Urine (Dipstick) Normal (Negative); Ketone, Urine 10 mg/dL (Negative); Leukocyte Negative Leu/uL (Negative); Nitrite Negative (Negative); Protein, Urine (Dipstick) 30 mg/dL (Neg-Trace); RBC/HPF 0-3 HPF (0-3); Specific Gravity, Urine 1.027 (1.002-1.036); Squamous Epithelial 0-3 HPF (0-3); Urobilinogen Normal mg/dL (Less than 2); WBC/HPF 0-3 HPF (0-3)
[2021-03-24] MEDS ORDERED: Acetaminophen 325 MG TAB PO PRN (23:18)
[2021-03-24 23:56] VITALS: BMI 22.8
[2021-03-25] MEDS ORDERED: Ondansetron PF 4 MG/2 ML Vial IVP PRN (00:04)
[2021-03-25] MEDS ORDERED: Ondansetron ODT 4 MG TAB PO PRN (00:04)
[2021-03-25] MEDS ORDERED: Dextrose 50% Abboject 50 ML SYRINGE SLOW IVP PRN (02:24)
[2021-03-25] MEDS ORDERED: Dextrose 5% in Water 1,000 ML IV PRN (02:24)
[2021-03-25] MEDS ORDERED: HumaLOG 300 UNITS/3 ML VIAL SC PRN ×2 (02:24)
[2021-03-25 04:54] LABS: #Eosinphils 0.1 thou/uL (0.0-0.7); #Lymphocytes 1.1 thou/uL (1.20-3.40); #Monocytes 0.3 thou/uL (0.11-0.59); #Neutrophils 3.3 thou/uL (1.40-6.50); %Basophils 0.5 % (0.0-1.0); %Eosinophils 1.9 % (0.0-10.0); %Lymphocytes 23.3 % (21.0-51.0); %Monocytes 6.4 % (0.0-10.0); %Neutrophils 67.9 % (42.0-75.0); Hemoglobin 9.2 g/dL (14.0-18.0); Mean Corpuscular HGB CONC 32.9 g/dL (32.0-36.0); Mean Corpuscular Hemoglobin 29.9 pg (27.0-31.0); Mean Corpuscular Volume 91.1 fL (78.0-98.0); Mean Platelet Volume 7.3 fL (7.4-10.4); Platelet Count 347 thou/uL (130-400); RBC Distribution Width 17.8 % (11.5-14.5); Red Blood Cell (RBC) Count 3.08 mill/uL (4.70-6.10); White Blood Cell (WBC) Count 4.9 thou/uL (4.8-10.8)
[2021-03-25 05:12] LABS: Anion Gap 16 mmol/L (10-20); BUN (Urea Nitrogen) 19 mg/dL (8.4-25.7); Calc. Creatinine Clearance 59 mL/min (70-130); Calcium 8.5 mg/dL (7.8-10.44); Carbon Dioxide 17 mmol/L (23-31); Chloride 106 mmol/L (98-107); Glucose 86 mg/dL (83-110); Potassium 4.3 mmol/L (3.5-5.1); Sodium 135 mmol/L (136-145)
[2021-03-25] MEDS: Enoxaparin Sodium 40 MG/0.4 ML SYRINGE SC SCH (07:54)
[2021-03-25] MEDS: Acetaminophen 325 MG TAB PO PRN (07:56)
[2021-03-25] MEDS: HYDROcodone/Acetaminophen 7.5/325 mg Tablet PO PRN ×2 (16:09→20:43)
[2021-03-25 18:42] LABS: SARS-CoV-2 PCR by NAA Not Detected (NotDetected)
[2021-03-25] MEDS: Carvedilol 6.25 MG TAB PO SCH (20:43)
[2021-03-26] MEDS: HYDROcodone/Acetaminophen 7.5/325 mg Tablet PO PRN (01:51)
[2021-03-26 05:30] LABS: Hemoglobin 9.1 g/dL (14.0-18.0)
[2021-03-26] MEDS ORDERED: Levothyroxine Sodium 50 MCG TAB PO SCH (06:00)
[2021-03-26 08:33] VITALS: BP 140/63; TEMP 97.4
[2021-03-26] MEDS ORDERED: Aspirin 81 mg Enteric Coated Tablet PO SCH (09:00)
[2021-03-26] MEDS ORDERED: Tamsulosin HCl 0.4 MG CAP PO SCH (09:00)
[2021-03-26] MEDS: Carvedilol 6.25 MG TAB PO SCH (09:34)
[2021-03-26] MEDS: Enoxaparin Sodium 40 MG/0.4 ML SYRINGE SC SCH (09:34)
[2021-03-26] MEDS: Acetaminophen 325 MG TAB PO PRN (09:35)
== END 2021-03-26 16:45 | disposition home or self-care (01) | DRG 841 ==
LOC: ERS 13:47 → ONC 18:16
PROVIDERS: ADMIT Internal Medicine; ATTEND Family Medicine
DX: C82.30 Follicular lymphoma grade IIIa, unspecified site (principal); J91.0 Malignant pleural effusion; E87.1 Hypo-osmolality and hyponatremia; K21.9 Gastro-esophageal reflux disease without esophagitis; I10 Essential (primary) hypertension; E78.00 Pure hypercholesterolemia, unspecified; D63.0 Anemia in neoplastic disease; Z20.822 Contact with and (suspected) exposure to COVID-19; E11.8 Type 2 diabetes mellitus with unspecified complications; R59.0 Localized enlarged lymph nodes; Z91.041 Radiographic dye allergy status; Z79.82 Long term (current) use of aspirin; Z79.899 Other long term (current) drug therapy; Z90.49 Acquired absence of other specified parts of digestive tract; Z95.1 Presence of aortocoronary bypass graft
CPT/HCPCS: 36415; 36416; 71045; 74176; 80048; 80053; 81003; 81015; 83880; 84443; 84484; 85014; 85018; 85025; 93005; J1650; U0003; U0005